=== PATIENT | female | born 1965 | race Two or more races ===

== ENCOUNTER 2019-01-04 12:38 | Emergency (ER) | payer MEDICAID ==
[~2019-01-04] VITALS: Ht 165.1 cm; Wt 104.3 kg
[~2019-01-04 12:38] MED LIST: LISINOPRIL; [UNRECOGNIZED DRUG - OTHER]; asa; lopressor; lotensin; xanax
[2019-01-04 12:53] VITALS: BP 119/80
[2019-01-04] MEDS ORDERED: HYDROcodone-ACET 7.5/325MG TAB PO ONE (15:30)
== END 2019-01-04 16:38 | disposition home or self-care (01) ==
LOC: EDBD 12:38 → ER 12:38
DX: G44.209 Tension-type headache, unspecified, not intractable (principal); K11.6 Mucocele of salivary gland; K04.7 Periapical abscess without sinus; M19.90 Unspecified osteoarthritis, unspecified site; E78.5 Hyperlipidemia, unspecified; E07.9 Disorder of thyroid, unspecified
CPT/HCPCS: 70450

== ENCOUNTER 2019-11-14 23:21 | Emergency (ER) | payer MEDICAID ==
[~2019-11-14] VITALS: Ht 172.7 cm; Wt 119.3 kg
[2019-11-15 01:17] LABS: Urine Bacteria FEW /hpf (None Seen); Urine Blood Negative /uL (Negative); Urine WBC 1 /hpf (0 - 5)
[2019-11-15 01:58] LABS: Basophils # (auto) 0 10 ^3/uL (0-0.2); Basophils % (auto) 0.6 % (0.0-2.0); Eosinophils # (auto) 0.1 10 ^3/uL (0-0.8); Eosinophils % (auto) 1.1 % (0.0-7.0); Hematocrit 40.4 % (36.0-46.0); Hemoglobin 13.8 g/dL (12.2-16.2); Lymphocytes # (auto) 1.6 10 ^3/uL (0.4-5.4); Lymphocytes % (auto) 31.2 % (10.0-50.0); Mean Corpuscular Hemoglobin 29.3 pg (28.0-32.0); Mean Corpuscular Hgb Conc. 34.1 g/dL (32.0-36.0); Mean Corpuscular Volume 85.8 fL (80.0-100.0); Monocytes # (auto) 0.5 10 ^3/uL (0-1.3); Monocytes % (auto) 9.7 % (0.0-12.0); Neutrophils % (auto) 57.4 % (37.0-80.0); Platelet Count (auto) 262 10^3/uL (140-450); Red Blood Cells 4.71 10^6/uL (4.0-5.20); Red Cell Distribution Width 15.8 % (11.8-14.3); White Blood Cell 5.2 10^3/uL (4.4-10.8)
[2019-11-15 02:14] LABS: Albumin 3.5 g/dL (3.4-5.0); Anion Gap 6 (5-15); Blood Urea Nitrogen 13 mg/dL (7-18); Calcium 9.3 mg/dL (8.5-10.1); Carbon Dioxide 29 mmol/L (21-32); Chloride 105 mmol/L (98-107); Glucose 90 mg/dL (74-106); Sodium 140 mmol/L (136-145)
[2019-11-15 02:16] LABS: Alanine Aminotransferase 42 U/L (13-56); Aspartate Aminotransferase 28 U/L (15-37); BUN/Creatinine Ratio 19.7; GFR African American 121 mL/min; GFR Non-African American 100 mL/min
[2019-11-15 02:21] LABS: Alkaline Phosphatase 128 U/L (45-117); Bilirubin, Total 0.6 mg/dL (0.2-1.0); Total Protein 7.2 g/dL (6.4-8.2)
[2019-11-15 02:25] LABS: Potassium 2.6 mmol/L (3.5-5.1)
[2019-11-15] MEDS ORDERED: PREGABALIN 25 MG CAP PO ONE (03:15)
[2019-11-15] MEDS ORDERED: POTASSIUM EFFERVESENT TAB 25 MEQ PO ONE (03:15)
[2019-11-15] MEDS ORDERED: OXYCODONE W/ ACETAMINOPHEN 5/325MG TABLET PO ONE (03:15)
[2019-11-15] MEDS ORDERED: POTASSIUM CHL 20MEQ/100ML 100 ML IV ONE (03:15)
[2019-11-15] MEDS ORDERED: APIXABAN 2.5 MG TAB PO ONE (03:45)
[2019-11-15] MEDS ORDERED: APIXABAN 5 MG TAB PO ONE (04:00)
[2019-11-15 07:43] VITALS: BP 133/73
== END 2019-11-15 07:46 | disposition home or self-care (01) ==
LOC: ER 23:21 → EDBD 23:21 → ER 11-15 07:46
DX: F41.9 Anxiety disorder, unspecified (principal); G89.29 Other chronic pain; E87.6 Hypokalemia; E78.5 Hyperlipidemia, unspecified; I10 Essential (primary) hypertension; Z90.49 Acquired absence of other specified parts of digestive tract
CPT/HCPCS: 36415; 71045; 80053; 81001; 84484; 85025; 93005; 96365; 96366; 99285; J3480; J7030

== ENCOUNTER 2023-09-02 04:58 | Emergency (ER) | payer MEDICAID ==
[~2023-09-02] VITALS: Ht 160 cm; Wt 145.0 kg
[~2023-09-02 04:58] MED LIST changes: +APIX5TAB PO; +GABA-1250 PO; +PERCOT PO; +PREG100C PO
[2023-09-02 07:17] VITALS: BP 144/89; PULSE 63; RESP 18; TEMP 98.3; O2SAT 99
[2023-09-02 07:31] LABS: Basophils # (auto) 0 10 ^3/uL (0-0.2); Basophils % (auto) 0.4 % (0.0-2.0); Eosinophils # (auto) 0.1 10 ^3/uL (0-0.8); Eosinophils % (auto) 0.7 % (0.0-7.0); Hematocrit 45.4 % (36.0-46.0); Hemoglobin 15.5 g/dL (12.2-16.2); Lymphocytes # (auto) 1.9 10 ^3/uL (0.4-5.4); Lymphocytes % (auto) 19.9 % (10.0-50.0); Mean Corpuscular Hemoglobin 28.6 pg (28.0-32.0); Mean Corpuscular Hgb Conc. 34.2 g/dL (32.0-36.0); Mean Corpuscular Volume 83.6 fL (80.0-100.0); Monocytes # (auto) 0.8 10 ^3/uL (0-1.3); Monocytes % (auto) 8.3 % (0.0-12.0); Neutrophils # (auto) 6.6 10 ^3/uL (1.6-8.6); Neutrophils % (auto) 70.7 % (37.0-80.0); Nucleated Red Blood Cells % 0.1 %; Red Blood Cells 5.43 10^6/uL (4.0-5.20); Red Cell Distribution Width 16.3 % (11.8-14.3); White Blood Cell 9.3 10^3/uL (4.4-10.8)
[2023-09-02 07:40] LABS: Chloride 92 mmol/L (98-107); Potassium 2.8 mmol/L (3.5-5.1); Sodium 129 mmol/L (136-145)
[2023-09-02 07:41] LABS: Anion Gap 9 (5-15); Carbon Dioxide 28 mmol/L (20-30)
[2023-09-02 07:46] LABS: Glucose 128 mg/dL (74-106)
[2023-09-02 07:47] LABS: BUN/Creatinine Ratio 13.3 (10.0-20.0); Blood Urea Nitrogen 10 mg/dL (9-23); Lipase 23 U/L (12-53)
[2023-09-02 08:15] LABS: Urine Bacteria None Seen /hpf (None Seen)
[2023-09-02 08:39] LABS: Urine Blood Negative /uL (Negative); Urine Clarity Clear (Clear); Urine Color Light-Yellow (Yellow); Urine Hyaline Cast FEW /lpf (0 - 2); Urine Protein, UAD Negative (Negative); Urine Specific Gravity 1.014 (1.001-1.035); Urine Urobilinogen Normal (Negative); Urine WBC 1 /hpf (0 - 5); Urine pH 5.5 (5.0-9.0)
[2023-09-02] MEDS ORDERED: POTA-36 PO (09:05)
== END 2023-09-02 09:09 | disposition home or self-care (01) ==
LOC: EDBD 04:58 → ER 04:58
DX: E87.6 Hypokalemia (principal); I10 Essential (primary) hypertension; E11.9 Type 2 diabetes mellitus without complications; E78.5 Hyperlipidemia, unspecified; Z90.49 Acquired absence of other specified parts of digestive tract; Z88.6 Allergy status to analgesic agent; Z88.8 Allergy status to other drugs, medicaments and biological substances
CPT/HCPCS: 36415; 80048; 81001; 83690; 85025

== ENCOUNTER 2023-09-09 18:38 | Inpatient (IN) | payer MEDICAID ==
[~2023-09-09] VITALS: Ht 165.1 cm; Wt 148.1 kg
[~2023-09-09 18:38] MED LIST changes: +POTA-36 PO
[2023-09-09 19:00] LABS: Basophils # (auto) 0.1 10 ^3/uL (0-0.2); Basophils % (auto) 0.6 % (0.0-2.0); Eosinophils # (auto) 0.1 10 ^3/uL (0-0.8); Hematocrit 43.8 % (36.0-46.0); Hemoglobin 14.9 g/dL (12.2-16.2); Lymphocytes # (auto) 2.9 10 ^3/uL (0.4-5.4); Lymphocytes % (auto) 23.3 % (10.0-50.0); Mean Corpuscular Hemoglobin 28.1 pg (28.0-32.0); Mean Corpuscular Hgb Conc. 33.9 g/dL (32.0-36.0); Mean Corpuscular Volume 82.7 fL (80.0-100.0); Monocytes # (auto) 1.5 10 ^3/uL (0-1.3); Monocytes % (auto) 12.4 % (0.0-12.0); Neutrophils # (auto) 7.8 10 ^3/uL (1.6-8.6); Neutrophils % (auto) 62.7 % (37.0-80.0); Nucleated Red Blood Cells % 0.1 %; Red Cell Distribution Width 15.6 % (11.8-14.3); White Blood Cell 12.4 10^3/uL (4.4-10.8)
[2023-09-09 19:15] LABS: Alanine Aminotransferase 21 U/L (7-40); Albumin 4.2 g/dL (3.2-4.8); Alkaline Phosphatase 151 U/L (46-116); Anion Gap 5 (5-15); Aspartate Aminotransferase 13 U/L (13-40); Blood Urea Nitrogen 15 mg/dL (9-23); Calcium 9.6 mg/dL (8.7-10.4); Carbon Dioxide 32 mmol/L (20-30); Chloride 78 mmol/L (98-107); Glucose 100 mg/dL (74-106); Lipase 148 U/L (12-53)
[2023-09-09 19:16] LABS: Bilirubin, Total 1.1 mg/dL (0.2-1.0); Total Protein 7.1 g/dL (5.7-8.2)
[2023-09-09 19:27] LABS: Sodium 115 mmol/L (136-145)
[2023-09-09] MEDS ORDERED: DEXTROSE (50%) 50ML SYRG IV PRN (22:30)
[2023-09-09] MEDS ORDERED: ACETAMINOPHEN 325 MG TAB PO PRN (22:30)
[2023-09-09] MEDS ORDERED: DOCUSATE SOD 100 MG CAP PO PRN (22:30)
[2023-09-09 23:01] VITALS: PULSE 89; RESP 20; O2SAT 97
[2023-09-09] MEDS: HYDROcodone-ACET 10/325MG TAB PO ONE (23:19)
[2023-09-09] MEDS: cefTRIAXone 1GM/50ML D5W 50 ML IV ONE (23:19)
[2023-09-09] MEDS: POTASSIUM EFFERVESENT TAB 25 MEQ PO ONE (23:20)
[2023-09-09] MEDS: ONDANSETRON HCL 4 MG/2 ML VIAL IV PRN (23:20)
[2023-09-09] MEDS: SODIUM CHLORIDE 0.9% 1,000 ML IV ONE (23:21)
[2023-09-09] MEDS: POTASSIUM CHL 20MEQ/100ML 100 ML IV SCH (23:23)
[2023-09-09] MEDS: SODIUM CHLORIDE 0.9% 1,000 ML IV SCH (23:42)
[2023-09-10] VITALS (9 sets, daily range): BP systolic 96–118; BP diastolic 60–76; PULSE 62–99; RESP 16–19; TEMP 97.6–98.4; O2SAT 93–100
[2023-09-10] MEDS ORDERED: NITROGLYCERIN 0.4 MG SL TAB SL PRN
[2023-09-10] MEDS ORDERED: MORPHINE SULFATE INJ 2 MG/ml SYRG IV PRN
[2023-09-10 01:14] LABS: Urine Bacteria None Seen /hpf (None Seen)
[2023-09-10] MEDS: HYDROmorphone HCL 2 MG/ML VL/or syr IV PRN ×3 (01:29→20:11)
[2023-09-10 01:34] LABS: Urine Blood Negative /uL (Negative); Urine Clarity Clear (Clear); Urine Color Yellow (Yellow); Urine Protein, UAD Negative (Negative); Urine Specific Gravity 1.012 (1.001-1.035); Urine Urobilinogen Normal (Negative); Urine WBC 9 /hpf (0 - 5); Urine pH 5.5 (5.0-9.0)
[2023-09-10] MEDS: InsuLIN REG 1unit/0.01ml Soln (100units/ml) SC SCH (06:13)
[2023-09-10] MEDS: ACCU-CHEK COMFORT CURVE STRIP VI SCH (06:13)
[2023-09-10 06:40] LABS: Basophils # (auto) 0 10 ^3/uL (0-0.2); Basophils % (auto) 0.3 % (0.0-2.0); Eosinophils # (auto) 0.1 10 ^3/uL (0-0.8); Eosinophils % (auto) 1.1 % (0.0-7.0); Hematocrit 38.6 % (36.0-46.0); Hemoglobin 13.6 g/dL (12.2-16.2); Lymphocytes # (auto) 2.7 10 ^3/uL (0.4-5.4); Lymphocytes % (auto) 26.8 % (10.0-50.0); Mean Corpuscular Hemoglobin 29.2 pg (28.0-32.0); Mean Corpuscular Hgb Conc. 35.3 g/dL (32.0-36.0); Mean Corpuscular Volume 82.8 fL (80.0-100.0); Monocytes # (auto) 1.2 10 ^3/uL (0-1.3); Monocytes % (auto) 11.8 % (0.0-12.0); Neutrophils # (auto) 6.1 10 ^3/uL (1.6-8.6); Red Blood Cells 4.67 10^6/uL (4.0-5.20); White Blood Cell 10.2 10^3/uL (4.4-10.8)
[2023-09-10 07:01] LABS: Alanine Aminotransferase 19 U/L (7-40); Alkaline Phosphatase 139 U/L (46-116); Anion Gap 5 (5-15); BUN/Creatinine Ratio 19.8 (10.0-20.0); Blood Urea Nitrogen 18 mg/dL (9-23); Calcium 8.9 mg/dL (8.5-10.1); Carbon Dioxide 30 mmol/L (20-30); Chloride 80 mmol/L (98-107); Glucose 125 mg/dL (74-106); Potassium 2.9 mmol/L (3.5-5.1)
[2023-09-10 07:02] LABS: Albumin 3.7 g/dL (3.2-4.8); Aspartate Aminotransferase 10 U/L (13-40); Bilirubin, Total 0.9 mg/dL (0.2-1.0)
[2023-09-10 07:03] LABS: Total Protein 6.2 g/dL (5.7-8.2)
[2023-09-10 07:21] LABS: Sodium 115 mmol/L (136-145)
[2023-09-10] MEDS: APIXABAN 5 MG TAB PO SCH ×2 (09:47→22:20)
[2023-09-10] MEDS: FAMOTIDINE (10MG/ML) 2ML VL IV SCH (09:47)
[2023-09-10] MEDS: POTASSIUM CHL 20 Meq TABLET PO ONE ×2 (11:06→17:48)
[2023-09-10 11:49] LABS: INR 0.99 (0.9-1.15); Partial Thromboplastin Time 31.6 SEC (24.5-34.5); Prothrombin Time 10.5 sec (9.3-11.8)
[2023-09-10 11:54] LABS: Triglycerides 52 mg/dL (< 150)
[2023-09-10 11:55] LABS: Blood Alcohol < 3.0 mg/dL (<10); Magnesium 2.2 mg/dL (1.6-2.6)
[2023-09-10 12:00] LABS: Thyroid Stimulating Hormone 1.12 uIU/mL (0.55-4.78)
[2023-09-10 12:15] LABS: Sodium Urine < 10 mmol/L (40-220)
[2023-09-10 12:21] LABS: Amphetamine Screen, Urine Neg (NEGATIVE)
[2023-09-10 12:22] LABS: Creatinine, Urine 37.43 mg/dL (30.0-125.0)
[2023-09-10 12:23] LABS: Barbiturate Scree,Urine Neg (NEGATIVE); Benzodiazephine Screen, Urine Pos (NEGATIVE); Cannabinoid Screen, Urine Neg (NEGATIVE); Cocaine Screen, Urine Neg (NEGATIVE); Opiate Scree,Urine Neg (NEGATIVE); Phencyclidine Screen, Urine Neg (NEGATIVE)
[2023-09-10 13:57] LABS: Chloride 83 mmol/L (98-107); Potassium 2.8 mmol/L (3.5-5.1)
[2023-09-10 13:58] LABS: Anion Gap 4 (5-15); Carbon Dioxide 29 mmol/L (20-30)
[2023-09-10 14:04] LABS: BUN/Creatinine Ratio 17.1 (10.0-20.0); Blood Urea Nitrogen 13 mg/dL (9-23); Glucose 110 mg/dL (74-106)
[2023-09-10 14:12] LABS: Sodium 116 mmol/L (136-145)
[2023-09-10] MEDS: SPIRONOLACTONE 25 MG TAB PO ONE (14:23)
[2023-09-10] MEDS: LEVOTHYROXINE SODIUM 25 MCG TAB PO ONE (14:23)
[2023-09-10] MEDS: HYDROcodone-ACET 5/325MG TAB PO PRN (15:03)
[2023-09-10 15:38] LABS: Chloride 83 mmol/L (98-107); Potassium 3.3 mmol/L (3.5-5.1)
[2023-09-10 15:42] LABS: Anion Gap 4 (5-15); Calcium 9.3 mg/dL (8.5-10.1); Carbon Dioxide 30 mmol/L (20-30)
[2023-09-10 15:47] LABS: BUN/Creatinine Ratio 14.5 (10.0-20.0); Blood Urea Nitrogen 11 mg/dL (9-23)
[2023-09-10 15:52] LABS: Sodium 117 mmol/L (136-145)
[2023-09-10 16:20] LABS: Base Excess 5.6 mmol/L (-2.0-2.0)
[2023-09-10 16:21] LABS: Glucose 104 mg/dL (74-106)
[2023-09-10] MEDS: SODIUM CHLORIDE 0.9% 1,000 ML IV SCH (16:41)
[2023-09-10 19:29] LABS: Anion Gap 3 (5-15); Calcium 9.5 mg/dL (8.7-10.4); Carbon Dioxide 29 mmol/L (20-30); Chloride 86 mmol/L (98-107); Potassium 3.4 mmol/L (3.5-5.1)
[2023-09-10 19:33] LABS: Glucose 144 mg/dL (74-106)
[2023-09-10 19:35] LABS: BUN/Creatinine Ratio 11.7 (10.0-20.0); Blood Urea Nitrogen 9 mg/dL (9-23)
[2023-09-10 19:38] LABS: Sodium 118 mmol/L (136-145)
[2023-09-10] MEDS ORDERED: cefTRIAXone 1GM/50ML D5W 50 ML IV SCH (22:00)
[2023-09-10] MEDS: PANTOPRAZOLE 40 MG/10 ML VIAL INJ IV SCH (22:20)
[2023-09-11] VITALS (7 sets, daily range): BP systolic 112–131; BP diastolic 57–72; PULSE 76–97; RESP 17–18; TEMP 97.4–98.7; O2SAT 98–100
[2023-09-11 06:04] LABS: Basophils # (auto) 0 10 ^3/uL (0-0.2); Basophils % (auto) 0.5 % (0.0-2.0); Eosinophils # (auto) 0.2 10 ^3/uL (0-0.8); Eosinophils % (auto) 2.1 % (0.0-7.0); Hematocrit 40.5 % (36.0-46.0); Hemoglobin 13.8 g/dL (12.2-16.2); Lymphocytes # (auto) 2.5 10 ^3/uL (0.4-5.4); Lymphocytes % (auto) 30.8 % (10.0-50.0); Mean Corpuscular Hemoglobin 28.5 pg (28.0-32.0); Mean Corpuscular Volume 83.8 fL (80.0-100.0); Monocytes # (auto) 1.2 10 ^3/uL (0-1.3); Monocytes % (auto) 14.6 % (0.0-12.0); Neutrophils # (auto) 4.2 10 ^3/uL (1.6-8.6); Red Blood Cells 4.83 10^6/uL (4.0-5.20); Red Cell Distribution Width 16.1 % (11.8-14.3)
[2023-09-11 06:09] LABS: Anion Gap 3 (5-15); Calcium 9.3 mg/dL (8.5-10.1); Carbon Dioxide 30 mmol/L (20-30); Chloride 91 mmol/L (98-107); Potassium 4.3 mmol/L (3.5-5.1)
[2023-09-11 06:15] LABS: BUN/Creatinine Ratio 13.3 (10.0-20.0); Blood Urea Nitrogen 8 mg/dL (9-23); Glucose 103 mg/dL (74-106); Triglycerides 60 mg/dL (< 150)
[2023-09-11 06:16] LABS: LDL Cholesterol 49 mg/dL (< 100); Magnesium 2.4 mg/dL (1.6-2.6)
[2023-09-11 06:17] LABS: Cholesterol 142 mg/dL (< 200); HDL Cholesterol 74 mg/dL (40-59)
[2023-09-11] MEDS: LEVOTHYROXINE SODIUM 25 MCG TAB PO SCH (06:28)
[2023-09-11 06:29] LABS: Sodium 124 mmol/L (136-145)
[2023-09-11] MEDS: cefTRIAXone 1GM/50ML D5W 50 ML IV SCH (09:39)
[2023-09-11] MEDS: SPIRONOLACTONE 25 MG TAB PO SCH (09:39)
[2023-09-12 01:00] VITALS: BP_SYST 138; BP_SYST 148; BP_DIAS 69; BP_DIAS 88; PULSE 86; RESP 16; TEMP 97.9; O2SAT 100
[2023-09-12 05:00] VITALS: BP 136/77; PULSE 82; RESP 17; TEMP 97.9; O2SAT 99
[2023-09-12 07:10] LABS: Anion Gap 1 (5-15); Calcium 9.2 mg/dL (8.5-10.1); Carbon Dioxide 29 mmol/L (20-30); Chloride 97 mmol/L (98-107); Potassium 4.6 mmol/L (3.5-5.1); Sodium 127 mmol/L (136-145)
[2023-09-12 07:16] LABS: BUN/Creatinine Ratio 9.1 (10.0-20.0); Blood Urea Nitrogen 5 mg/dL (9-23); Glucose 94 mg/dL (74-106)
[2023-09-12 08:00] VITALS: PULSE 77
[2023-09-12 09:35] VITALS: BP 143/82; PULSE 73; RESP 20; TEMP 98.1; O2SAT 98
[2023-09-12 13:24] VITALS: BP 134/67; PULSE 87; RESP 20; TEMP 98.3; O2SAT 97
== END 2023-09-12 16:04 | disposition left against medical advice (07) | DRG 282 ==
LOC: EDBD 18:38 → ER 18:38 → TELE 23:49 → TELE-WESTW 09-10 03:00
PROVIDERS: ADMIT Internal Medicine; ATTEND Internal Medicine
DX: K85.90 Acute pancreatitis without necrosis or infection, unspecified (principal); I24.9 Acute ischemic heart disease, unspecified; Z68.43 Body mass index [BMI] 50.0-59.9, adult; K74.60 Unspecified cirrhosis of liver; E87.1 Hypo-osmolality and hyponatremia; E11.9 Type 2 diabetes mellitus without complications; D72.829 Elevated white blood cell count, unspecified; E03.9 Hypothyroidism, unspecified; E78.5 Hyperlipidemia, unspecified; Z53.29 Procedure and treatment not carried out because of patient's decision for other reasons; R33.9 Retention of urine, unspecified; E87.6 Hypokalemia; F10.20 Alcohol dependence, uncomplicated; E66.01 Morbid (severe) obesity due to excess calories; I10 Essential (primary) hypertension; Z86.711 Personal history of pulmonary embolism; Z90.49 Acquired absence of other specified parts of digestive tract; Z98.84 Bariatric surgery status; Z82.49 Family history of ischemic heart disease and other diseases of the circulatory system; Z82.3 Family history of stroke; Z83.3 Family history of diabetes mellitus; Z79.4 Long term (current) use of insulin; Z79.899 Other long term (current) drug therapy; Y90.9 Presence of alcohol in blood, level not specified
CPT/HCPCS: 36415; 36600; 74176; 80048; 80053; 80061; 80307; 80320; 81001; 82570; 82805; 82962; 83036; 83605; 83615; 83690; 83735; 83880; 83930; 83935; 84133; 84300; 84443; 84478; 84484; 84550; 85025; 85610; 85730; 86038; 87040; 87086; 93005; 96361; 96365; 96375; 97162; C9113; G0378; J2405; J3480; J3490

== ENCOUNTER 2024-08-29 12:01 | Inpatient (IN) | payer MEDICAID ==
[~2024-08-29] VITALS: Ht 160 cm; Wt 156.0 kg
[~2024-08-29 12:01] MED LIST changes: +ALPR0.5T PO; +ARIP1TAB63 PO; +FURO20TA4 PO; +HYDR25TA4 PO; +LEVO50TA7 PO; +LISI20TA56 PO; +LORA-622 PO; +METO-289 PO; +POTA-228 PO; +SIMV10TA20 PO; +[UNRECOGNIZED DRUG - CODE] PO
--- NOTE | 2024-08-29 12:23 | ED.PDOC ---
SOB-HPI HPI Comments This is a 58 year old female TORIA presenting to the ED with chief complaint of SOB. Patient reports that she has been experiencing SOB since yesterday and is normally on 4L of O2 at home. EMS relays that the patient did not take her Lasix today and upon arrival to the ED, the patient started to complaint of left sided dull chest pain with associated nausea and chills. Patient notes having history of a PE in and has been on Eliquis since then. Patient denies any cough, headache, dizziness, vomiting, diarrhea, abdominal pain, or hemoptysis. Time Seen by MD: 12:20 Primary Care Provider: SON Reviewed notes: Nurses Notes, Manager Retail Notes, Medications, Allergies Information Source: Patient, Emergency Med Personnel Mode of Arrival: EMS Severity: Moderate Timing: Hours Duration: Since onset Context: At Rest PE Risk Factors: None History of: None Prehospital treatment: Oxygen Modifying Factors: Nothing Associated Signs and Symptoms: Chest Pain Quality: Other (Dull) Radiation: No Radiation Location: Chest (L) Past Medical History PAST MEDICAL HISTORY: Anxiety, Arthritis, COPD, DM, High Lipids, HTN, Liver, PE, Thyroid Surgical History: Appendectomy, Cholecystectomy Surgical History (Other): Bariatric surgery POWER CHECKER History: Denies all POWER CHECKER Hx Family History Family History: Reviewed,noncontributory to illness, Family hx of heart ignacio Social History Smoker: Non-Smoker Alcohol: Occasionally Drugs: Denies Drug Use Lives In: Home Constitutional: reports: chills; denies: diaphoresis, fatigue, fever, malaise, sweats, weakness, others EENTM: denies: blurred vision, double vision, ear bleeding, ear discharge, ear drainage, ear pain, ear ringing, eye pain, eye redness, hearing loss, mouth pain, mouth swelling, nasal discharge, nose bleeding, nose congestion, nose pain, photophobia, tearing, throat pain, throat swelling, voice changes, others Respiratory: reports: shortness of breath; denies: cough, hemoptysis, ortho pnea, SOB at rest, SOB with excertion, stridor, wheezing, others Cardiovascular: reports: chest pain; denies: dizzy spells, diaphoresis, Dyspnea on exertion, edema, irregular heart beat, left arm pain, lightheadedness, palpitations, PND, syncope, others Gastrointestinal: reports: nausea; denies: abdomen distended, abdominal pain, blood streaked bowels, constipated, diarrhea, dysphagia, difficulty swallowing, hematemesis, melena, poor appetite, poor fluid intake, rectal bleeding, rectal pain, vomiting, others Genitourinary: denies: abnormal vagina bleeding, burning, dyspareunia, dysuria, flank pain, frequency, hematuria, incontinence, pain, , vagina discharge, urgency, others Neurological: denies: dizziness, fainting, headache, left sided numbness, left sided weakness, numbness, paresthesia, pre-existing deficit, right sided numbness, right sided weakness, seizure, speech problems, tingling, tremors, weakness, others Musculoskeletal: denies: back pain, gout, joint pain, joint swelling, muscle pain, muscle stiffness, neck pain, others Integumetry: denies: bruises, change in color, change in hair/nails, dryness, laceration, lesions, lumps, rash, wounds, others Allergic/Immunocompromised: denies: Difficulty Healing, Frequent Infections, Hives, Itching, others Hematologic/Lymphatic: denies: anemia, blood clots, easy bleeding, easy bruising, swollen glands, others Endocrine: denies: excessive hunger, excessive sweating, excessive thirst, excessive urination, flushing, intolerance to cold, intolerance to heat, unexplained weight gain, unexplained weight loss, others Psychiatric: denies: anxiety, bipolar disorder, depression, hopeless, panic disorder, schizophrenia, sleepless, suicidal, others All Other Systems: Reviewed and Negative Physical Exam General Appearance: Moderate Distress, Obese HEENT: Normal ENT Inspection, Pharynx Normal, TMs Normal Neck: Full Range of Motion, Non-Tender, Normal, Normal Inspection Respiratory: Chest Non-Tender, Lungs Clear, No Accessory Muscle Use, No Respiratory Distress, Normal Breath Sounds Cardiovascular: No Edema, No JVD, No Murmur, No Gallop, Normal Peripheral Pulses, Regular Rate/Rhythm Breast Exam: Deferred Gastrointestinal: LLQ, No Organomegaly, Normal Bowel Sounds, Soft, Tenderness Genitalia: Deferred Pelvic: Deferred Rectal: Deferred Extremities: No calf tenderness, Normal capillary refill, Pedal edema Musculoskeletal : Apperance: Normal Neurologic: Alert, web application developer II-XII nml as Tested, Motor Weakness, Normal Affect, Normal Mood, No Sensory Deficits Cerebellar Function: Normal Reflexes: Normal Skin: Dry, Normal Color, Warm Lymphatic: No Adenopathy EKG EKG : Pulse Rate (adult): 108 Vida: Normal Cardiac Rhythm: ST Block: None Hypertrophy: LVH ST: Old, Inf, Infarct Was a procedure done? Was a procedure done?: No Differential Dx Differential Diagnosis: Asthma, Bronchitis, CHF, COPD, Pneumonia X-Ray, Labs, Meds, VS Vital Signs Date Time Temp Pulse Resp B/P (MAP) Pulse Ox O2 Delivery O2 Flow Rate FiO2 08/29/24 17:16 97.5 110 16 113/78 (90) 99 97.5 08/29/24 14:54 98.0 103 18 117/71 (86) 99 98.0 08/29/24 13:45 99 15 104/81 08/29/24 13:40 98.1 99 14 104/81 (89) 100 98.1 08/29/24 13:40 99 14 100 Room Air* 0 21 08/29/24 12:29 97.7 97 22 149/81 (103) 100 97.7 08/29/24 12:28 22 100 Nasal Cannula* 4 36 08/29/24 12:23 108 08/29/24 12:07 108 Lab Test 08/29/24 14:24 08/29/24 13:14 Range/Units Troponin I High Sensitivity 6 6 </=34 ng/L White Blood Count 8.8 4.4-10.8 10^3/uL Red Blood Count 5.58 H 4.0-5.20 10^6/uL Hemoglobin 16.2 12.2-16.2 g/dL Hematocrit 47.1 H 36.0-46.0 % Mean Corpuscular Volume 84.4 80.0-100.0 fL Mean Corpuscular Hemoglobin 29.0 28.0-32.0 pg Mean Corpuscular Hemoglobin Concent 34.4 32.0-36.0 g/dL Red Cell Distribution Width 16.0 H 11.8-14.3 % Platelet Count 331 140-450 10^3/uL Mean Platelet Volume 8.1 6.9-10.8 fL Neutrophils (%) (Auto) 61.8 37.0-80.0 % Lymphocytes (%) (Auto) 28.0 10.0-50.0 % Monocytes (%) (Auto) 9.6 0.0-12.0 % Eosinophils (%) (Auto) 0.2 0.0-7.0 % Basophils (%) (Auto) 0.4 0.0-2.0 % Neutrophils # (Auto) 5.5 1.6-8.6 10 ^3/uL Lymphocytes # (Auto) 2.5 0.4-5.4 10 ^3/uL Monocytes # (Auto) 0.8 0-1.3 10 ^3/uL Eosinophils # (Auto) 0 0-0.8 10 ^3/uL Basophils # (Auto) 0 0-0.2 10 ^3/uL Nucleated Red Blood Cells 0.1 % D-Dimer, Quantitative 0.44 0.0-0.49 mg/L FEU Sodium Level 135 L 136-145 mmol/L Potassium Level 3.5 3.5-5.1 mmol/L Chloride Level 96 L 98-107 mmol/L Carbon Dioxide Level 23 20-31 mmol/L Anion Gap 16 H 5-15 Blood Urea Nitrogen 12 9-23 mg/dL Creatinine 0.93 0.550-1.02 mg/dL Glomerular Filtration Rate Calc 72 >90 mL/min BUN/Creatinine Ratio 12.9 10.0-20.0 Serum Glucose 130 H 74-106 mg/dL Calcium Level 10.0 8.7-10.4 mg/dL Current Medications Medications (Trade) Dose Ordered Sig/Latha Route Start Time Stop Time Status Last Admin Hydromorphone HCl (Dilaudid Injection) 1 mg ONCE ONCE IV 08/29/24 13:30 08/29/24 13:33 DC 08/29/24 13:45 Ondansetron HCl (Zofran) 4 mg ONCE ONCE IV 08/29/24 13:30 08/29/24 13:33 DC 08/29/24 13:43 Chest XR indicates: No acute disease. The patient was given Dilaudid 1 mg IV push for the pain The patient was given Zofran 4 mg IV push for the nausea The patient's CBC is within normal limits The chemistry panel is within normal limits The troponin level x2 is negative At this time, the patient is being admitted to the hospitalist The CAT scan of the abdomen and pelvis shows: IMPRESSION: 1. Prior Andree-en-Y gastric bypass surgery. No bowel obstruction, fluid collection, or free air. 2. Mild hepatomegaly. The chest x-ray shows: No sign of abnormalities The patient is being admitted at this time Images Reviewed?: Images reviewed and evaluated by me Time of 1ST Reevaluation: 19:08 Reevaluation 1ST: Unchanged Patient Education/Counseling: Diagnosis, Treatment, Prognosis Family Education/Counseling: No Family Present Additional Information Reviewed patient's previous visit(s): 10/29/23 for SOB The following tests were ordered, and results were reviewed by me: Chest XR, EKG, CBC, BMP, UA, D-Dimer, Troponin Additional information was gathered from interviewing the following independent historian: EMS I reviewed and agreed with the following test results read by other provider: Chest XR I discussed treatments and results with medical personnel and: Patient Comprehensive systems review obtained and negative except for what is stated in the HPI. Departure 1 Departure Time of Disposition: 19:09 Impression: Primary Impression: Generalized weakness Additional Impressions: Acute myocardial ischemia Intractable abdominal pain Disposition: ADMITTED INPATIENT Admit to: Tele Condition: Fair Critical Care Note Critical Care Time?: Yes (55 min-critical care time only) Stability Stability form required: Yes Unstable for transfer: Telemetry monitoring (Telemetry monitoring required), ED Physician Assesment (Clinical assesment) Heart Score Heart Score: Heart Score Response (Comments) Value History Highly Suspicious 2 EKG Repolarization Disturb 1 Age 45-64 1 Risk Factors >3 or Hx ASHD 2 Troponin Normal limit 0 Total 6 I personally scribed for FAVIO RASMUSSEN MD ([email or web address]) on 08/29/24 at 12:23. Electronically submitted by Liban Hubbard ([email or web address]). I personally scribed for FAVIO RASMUSSEN MD ([email or web address]) on 08/29/24 at 12:42. Electronically submitted by Liban Hubbard ([email or web address]). I personally scribed for FAVIO RASMUSSEN MD ([email or web address]) on 08/29/24 at 13:41. Electronically submitted by Liban Hubbard ([email or web address]). FAVIO RASMUSSEN MD Aug 29, 2024 12:23
--- NOTE | 2024-08-29 12:54 | DVH ---
CHEST RADIOGRAPH Indication: sob Technique: Single frontal view of the chest was obtained COMPARISON: XY CHEST PORTABLE on DOS: 10/29/23, CHEST XRAY 1 VIEW on DOS: 08/17/20, CHEST PORTABLE on DO S: 11/15/19 FINDINGS: Lines and Tubes: None Lungs: Clear Pleura: No effusion. No pneumothorax. Cardiomediastinal contours: Unremarkable Bones: Unremarkable IMPRESSION: No acute disease.
[2024-08-29 13:40] VITALS: PULSE 99; RESP 14; O2SAT 100
[2024-08-29 13:43] LABS: Basophils # (auto) 0 10 ^3/uL (0-0.2); Basophils % (auto) 0.4 % (0.0-2.0); Eosinophils # (auto) 0 10 ^3/uL (0-0.8); Eosinophils % (auto) 0.2 % (0.0-7.0); Hematocrit 47.1 % (36.0-46.0); Hemoglobin 16.2 g/dL (12.2-16.2); Lymphocytes # (auto) 2.5 10 ^3/uL (0.4-5.4); Mean Corpuscular Hgb Conc. 34.4 g/dL (32.0-36.0); Mean Corpuscular Volume 84.4 fL (80.0-100.0); Monocytes # (auto) 0.8 10 ^3/uL (0-1.3); Monocytes % (auto) 9.6 % (0.0-12.0); Neutrophils # (auto) 5.5 10 ^3/uL (1.6-8.6); Neutrophils % (auto) 61.8 % (37.0-80.0); Nucleated Red Blood Cells % 0.1 %; Platelet Count (auto) 331 10^3/uL (140-450); Red Blood Cells 5.58 10^6/uL (4.0-5.20); White Blood Cell 8.8 10^3/uL (4.4-10.8)
[2024-08-29] MEDS: ONDANSETRON HCL 4 MG/2 ML VIAL IV ONE (13:43)
[2024-08-29] MEDS: ONDANSETRON HCL 4 MG/2 ML VIAL ONE (13:43)
[2024-08-29] MEDS: HYDROmorphone HCL 2 MG/ML VL/or syr IV ONE ×2 (13:45→17:30)
[2024-08-29 13:51] LABS: Potassium 3.5 mmol/L (3.5-5.1)
[2024-08-29 13:52] LABS: Anion Gap 16 (5-15); Carbon Dioxide 23 mmol/L (20-31)
[2024-08-29 13:57] LABS: BUN/Creatinine Ratio 12.9 (10.0-20.0); Blood Urea Nitrogen 12 mg/dL (9-23)
[2024-08-29 13:58] LABS: Chloride 96 mmol/L (98-107); Glucose 130 mg/dL (74-106); Sodium 135 mmol/L (136-145)
--- NOTE | 2024-08-29 14:40 | DVH ---
CLINICAL HISTORY: Abdominal pain TECHNIQUE: CT of the abdomen and pelvis was performed without intravenous contrast. This exam was per formed according to our departmental dose optimization program. Up-to-date CT equipment and radiation dose reduction techniques are utilized as appropriate. CTDI: 27.88 DLP: 1602.49 WID: COMPARISON: CT CT AB PEL WO CON-NO ORAL OR IV on DOS: 09/09/23 FINDINGS: Lower Thorax: Linear scarring or atelectasis in the lingula. Normal-sized heart. Liver and Biliary system: Mild hepatomegaly with the right lobe of the liver measuring 19 cm cranioca udal. No definite hepatic lesion. There is mild dilatation of the common bile duct status post cholec ystectomy. No intrahepatic bile duct dilatation. Spleen: Unremarkable. Adrenal Glands and Kidneys: Unremarkable. Pancreas and Retroperitoneum: Unremarkable. Aorta and Major Vessels: Aortoiliac vessels are normal in caliber with mild calcified atherosclerotic plaque. Bowel, Mesentery and Peritoneal space: The small and large bowel loops are normal in caliber. Prior R oux-en-Y gastric bypass surgery and left anterior abdominal anastomosis. Prior appendectomy. There is no free intraperitoneal air, mesenteric lymphadenopathy, or loculated fluid collection. Pelvis: Unremarkable. Abdominal wall and Osseous Structures: Multilevel lower thoracic and lumbar spondylosis. There is gr dina 1 anterolisthesis at L4-L5 and L5-S1. No destructive osseous lesion. IMPRESSION: 1. Prior Andree-en-Y gastric bypass surgery. No bowel obstruction, fluid collection, or free air. 2. Mild hepatomegaly.
[2024-08-29] MEDS ORDERED: ACETAMINOPHEN 325 MG TAB PO PRN (22:30)
[2024-08-29] MEDS: ACETAMINOPHEN 325 MG TAB PO ONE (22:45)
[2024-08-29] MEDS: POTASSIUM EFFERVESENT TAB 25 MEQ PO ONE (22:45)
[2024-08-29] MEDS: SODIUM CHLORIDE 0.9% 1,000 ML IV ONE (22:45)
[2024-08-29 23:23] LABS: Urine Bacteria None Seen /hpf (None Seen)
--- NOTE | 2024-08-29 23:23 | DVHHPRES ---
History of Present Illness Resident Creating Document: [place] [facility] RESIDENT History of Present Illness This is a 58-year-old female with past medical history of hypertension, neuropathy, degenerative disc disease, dyslipidemia, hypothyroidism, osteoarthritis, history of IVC filter placed in 2018 unable to be removed, pulmonary embolism in 2018 and has been on 4L of O2 at home through Nasal cannula, presented to the ED with chief complaint of acute shortness of breath and generalized body cramps. Patient states that shortness of breaths started yesterday and progressively got worse today without cough or sputum production. Patient also reported mild intermittent chest pain and states that has not been able to walk with her cane as normally due to the generalized muscle cramps. The patient denied fever/chills, or any other associated symptoms. On admission, patient was placed on 4 L of oxygen through nasal cannula, initial labs showed normal CBC and BNP with negative troponins. D-dimer was normal range, chest x-ray was grossly clear without evidence of clear consolidations. We will admit the patient for further assessment and management. Past medical history: hypertension, neuropathy, degenerative disc disease, dyslipidemia, hypothyroidism, osteoarthritis, history of IVC filter placed in 2018 unable to be removed, pulmonary embolism in 2018 and has been on 4L of O2 at home through Nasal cannula. The patient stated that in 2018 before doing bariatric surgery they placed an inferior vena cava filter prophylactically and after the surgery she developed pulmonary embolism. Later on they were not able to remove the IVC filter due to "perforation". Home medications: Lisinopril, hydrochlorothiazide, metoprolol, Lyrica, Percocet, Eliquis 5 mg b.i.d. (patient does not remember the dose of the medications). Surgical history: Bariatric surgery in 2018 Social history: Reports chronic alcohol use but stopped this time, quit smoking long time ago and denies drugs intake. Cardiovascular: HTN, hyperipidemia Pulmonary: Pulmonary embolus Musculoskeletal: Osteoarthritis Endocrine: Hypothyroidism Past Surgical History: Other (Inferior vena cava filter placement in 2018 not able to be removed. And bariatric surgery in 2018 as well.) Family History: None Smoke: Quit ALCOHOL: occassional Drugs: None Lives: with Family Domestic Violence: Neg Review of Systems Constitutional: No: Fever, Chills, Sweats, Weakness, Malaise, Other Eyes: No: Pain, Vision change, Conjunctivae inflammation, Eyelid inflammation, Other, Redness ENT: No: Ear pain, Ear discharge, Nose pain, Nose discharge, Nose congestion, Mouth pain, Mouth swelling, Throat pain, Throat swelling, Other Respiratory: Shortness of breath, SOB with excertion; No: Cough, Dry, Wheezing, Hemoptysis, Pleuritic Pain, Sputum, Wheezing, Other Cardiovascular: Chest Pain; No: Palpitations, Orthopnea, Paroxysmal Noc. Dyspnea, Edema, Lt Headedness, Other Gastrointestinal: No: Nausea, Vomiting, Abdominal Pain, Diarrhea, Constipation, Melena, Hematochezia, Other Genitourinary: No Dysuria, No Frequency, No Incontinence, No Hematuria, No Retention, No Other Musculoskeletal: other (Generalized body cramps in both upper extremities and lower extremities well as back and trunk.) Skin: No: Rash, Lesions, Jaundice, Bruising, Other Neurological: No: Weakness, Numbness, Incoordination, Change in speech, Confusion, Seizures, Other Allergies: Coded Allergies: Tramadol (Verified Allergy, Intermediate, unknown, 08/17/20) Ketorolac Tromethamine (Verified Allergy, Unknown, 11/15/19) Lidocaine (Verified Allergy, Unknown, 08/17/20) Morphine (Unverified Allergy, Unknown, 11/15/19) Verapamil (Unverified Allergy, Unknown, 11/15/19) Medications Current Medications Medications Dose Ordered Sig/Latha Route Start Time Stop Time Status Last Admin Dose Admin Acetaminophen 650 mg Q6HP PRN PO 08/29/24 22:30 Acetaminophen/ Hydrocodone Bitart 1 tab Q4HP PRN PO 08/29/24 22:30 Enoxaparin Sodium 40 mg DAILY SC 08/30/24 10:00 Exam Vital Signs Vital Signs Date Time Temp Pulse Resp B/P (MAP) Pulse Ox O2 Delivery O2 Flow Rate FiO2 08/29/24 19:37 97.8 115 18 119/89 (99) 96 97.8 08/29/24 13:40 Room Air* 0 21 General Appearance: Alert, Oriented X3, Cooperative, mild distress HEENT: Atraumatic, PERRLA, EOMI Respiratory: Clear to auscultation, Normal air movement Cardiovascular: Regular rate, Normal S1, Normal S2, No murmurs Abdominal: Normal bowel sounds, Soft, No tenderness, No masses Extremities: No clubbing, No cyanosis, No edema, Normal pulses, No tenderness/swelling Skin: No rashes, No breakdown, No significant lesion Neuro: Normal speech, Strength at 5/5 X4 ext, Normal tone, Sensation intact, C ranial nerves 3-12 NL, Reflexes 2+ Psych/Mental Status: Mental status NL, Mood NL Labs/Xrays Labs Test 08/29/24 21:16 08/29/24 14:24 08/29/24 13:14 Range/Units B-Type Natriuretic Peptide 42.66 0-100 pg/mL Troponin I High Sensitivity 6 </=34 ng/L White Blood Count 8.8 4.4-10.8 10^3/uL Red Blood Count 5.58 H 4.0-5.20 10^6/uL Hemoglobin 16.2 12.2-16.2 g/dL Hematocrit 47.1 H 36.0-46.0 % Mean Corpuscular Volume 84.4 80.0-100.0 fL Mean Corpuscular Hemoglobin 29.0 28.0-32.0 pg Mean Corpuscular Hemoglobin Concent 34.4 32.0-36.0 g/dL Red Cell Distribution Width 16.0 H 11.8-14.3 % Platelet Count 331 140-450 10^3/uL Mean Platelet Volume 8.1 6.9-10.8 fL Neutrophils (%) (Auto) 61.8 37.0-80.0 % Lymphocytes (%) (Auto) 28.0 10.0-50.0 % Monocytes (%) (Auto) 9.6 0.0-12.0 % Eosinophils (%) (Auto) 0.2 0.0-7.0 % Basophils (%) (Auto) 0.4 0.0-2.0 % Neutrophils # (Auto) 5.5 1.6-8.6 10 ^3/uL Lymphocytes # (Auto) 2.5 0.4-5.4 10 ^3/uL Monocytes # (Auto) 0.8 0-1.3 10 ^3/uL Eosinophils # (Auto) 0 0-0.8 10 ^3/uL Basophils # (Auto) 0 0-0.2 10 ^3/uL Nucleated Red Blood Cells 0.1 % D-Dimer, Quantitative 0.44 0.0-0.49 mg/L FEU Sodium Level 135 L 136-145 mmol/L Potassium Level 3.5 3.5-5.1 mmol/L Chloride Level 96 L 98-107 mmol/L Carbon Dioxide Level 23 20-31 mmol/L Anion Gap 16 H 5-15 Blood Urea Nitrogen 12 9-23 mg/dL Creatinine 0.93 0.550-1.02 mg/dL Glomerular Filtration Rate Calc 72 >90 mL/min BUN/Creatinine Ratio 12.9 10.0-20.0 Serum Glucose 130 H 74-106 mg/dL Hemoglobin A1c 5.1 <5.7 % A1C Calcium Level 10.0 8.7-10.4 mg/dL Assessment/Plan Assessment/Plan Assessment/plan Acute hypoxic respiratory failure, R/O pulmonary embolism Acute generalized body aches likely due to dehydration/electrolytes abnormalit ies Hx of Chronic home O2 requirement R/O systolic/diastolic heart failure Primary hypertension Hypothyroidism Dyslipidemia History of osteoarthritis History of pulmonary embolism and IVC filter placed in 2018 Plan -patient is currently on 4 L of oxygen through nasal cannula -initial chest x-ray showed no evidence of clear consolidations, grossly clear -D-dimer was normal range -Ordered CT chest w/o contrast -Ordered EKG and ECHO -ordered COVID and influenza A and B -IV NS 0.9% 1L bolus, keep maintenance of 60cc/hr until next morning -Resume eliquis 5mg bid -Restart lisinopril 10mg daily Goals of care discussed with the patient at bedside for >35min, FULL CODE Plan discussed with Dr. Naylor Plan discussed with: Patient My Orders Orders - [place] [facility] RESIDENT Procedure Category Date Status Time Admit ADMIT 08/29/24 Transmitted 22:28 Code Status CODE 08/29/24 Transmitted 22:28 Vital Signs FRIEDA 08/29/24 In Process 22:28 Review Orders With FRIEDA 08/29/24 In Process Adm. 22:28 Encourage Activity As FRIEDA 08/29/24 In Process Tolerate 22:28 Regular Diet DIET 08/30/24 Transmitted Breakfast Acetaminophen Tablet PHA 08/29/24 In Process (Tylenol Tablet) 22:30 Notify Of Changes FRIEDA 08/29/24 In Process From Base 22:28 Advance Directive FRIEDA 08/29/24 In Process 22:28 Basic Metabolic Panel LAB 08/30/24 Verified 04:00 Complete Blood Count LAB 08/30/24 Verified 04:00 Lipid Panel LAB 08/29/24 In Process 22:28 Patient Condition ORDERS 08/29/24 Transmitted 22:28 Allergies FRIEDA 08/29/24 In Process 22:28 Hydrocodone-Acet PHA 08/29/24 In Process 5/325mg Tab ([place] 22:30 Drug Screen LAB 08/29/24 Logged 22:28 Enoxaparin Sodium PHA 08/30/24 In Process (Lovenox) 10:00 Sodium Chloride 0.9% PHA 08/29/24 In Process 22:45 Magnesium LAB 08/29/24 In Process 22:35 Covid19 Antigen [facility] LAB 08/29/24 Logged Rapid Influenza A&B LAB 08/29/24 Logged 22:36 Electrocardigram EKG 08/29/24 Logged 22:37 Date of Service: Aug 29, 2024 Billing Provider: NAEEM NAYLOR MD Common Visit Codes: 58738-BFHELBH INP/OBS CARE (HIGH) Secondary Visit Codes: 80576-[id number] CARE PLAN 30 MINUTES [place] [facility] RESIDENT Aug 29, 2024 23:23
[2024-08-29] MEDS ORDERED: APIXABAN 5 MG TAB PO SCH (23:30)
[2024-08-29 23:33] LABS: Triglycerides 194 mg/dL (< 150)
[2024-08-29 23:34] LABS: LDL Cholesterol 41 mg/dL (< 100)
[2024-08-29 23:35] LABS: Cholesterol 171 mg/dL (< 200)
[2024-08-29 23:41] LABS: Urine Blood Negative /uL (Negative); Urine Clarity Turbid (Clear); Urine Color Light-Orange (Yellow); Urine Hyaline Cast FEW /lpf (0 - 2); Urine Mucus FEW (None Seen); Urine Protein, UAD 1+ (Negative); Urine Specific Gravity 1.026 (1.001-1.035); Urine Squamous Epithelial Cell FEW /hpf (<5); Urine Urobilinogen 2 mg/dL (Negative); Urine WBC 48 /HPF (0-5)
[2024-08-29 23:43] LABS: HDL Cholesterol 92 mg/dL (40-59)
[2024-08-29 23:45] LABS: Amphetamine Screen, Urine Neg (NEGATIVE); Barbiturate Scree,Urine Neg (NEGATIVE); Benzodiazephine Screen, Urine Neg (NEGATIVE); Cocaine Screen, Urine Neg (NEGATIVE); Opiate Scree,Urine Neg (NEGATIVE)
[2024-08-29 23:46] LABS: Cannabinoid Screen, Urine Neg (NEGATIVE); Phencyclidine Screen, Urine Neg (NEGATIVE)
--- NOTE | 2024-08-30 01:25 | DVH ---
CT SCAN CHEST WITHOUT CONTRAST CLINICAL HISTORY: R/O parenchymal lung disease or PNA TECHNIQUE: Helical axial scans are obtained from the thoracic inlet to the upper abdomen without intr avenous contrast injection. Coronal and sagittal reformatted images were generated from thin-section reconstructions. One or more of the following radiation dose reduction techniques were used for this examination: automated exposure control, adjustment of the mA and/or kV according to patient size, us e of iterative reconstruction technique. COMPARISON: Chest x-ray obtained earlier the same day. FINDINGS: Evaluation of vascular and other mediastinal structures is limited due to lack of contrast administra tion. Mediastinum: The heart is nonenlarged. No pericardial effusion. No mediastinal adenopathy noted. Lung parenchyma: Scattered mild atelectasis/scarring, mainly in the lingular region. No dominant cons olidation is identified. Pleura: No sizable pleural effusions or pneumothorax. Chest wall/axillae: No axillary adenopathy noted. Upper Abdomen: No acute findings as visualized. Osseous structures: Multilevel degenerative changes of the thoracic spine. IMPRESSION: No focal pulmonary consolidations. HS:Y
[2024-08-30] MEDS: HYDROcodone-ACET 5/325MG TAB PO PRN (03:59)
[2024-08-30 04:19] VITALS: BP 122/73; PULSE 105; RESP 15; TEMP 97.9; O2SAT 100
[2024-08-30 05:09] LABS: Rapid Influenza A Negative (Negative); Rapid Influenza B Negative (Negative)
[2024-08-30 05:10] LABS: COVID19 ANTIGEN SOFIA FIA NEGATIVE (NEGATIVE)
[2024-08-30 06:19] LABS: Basophils # (auto) 0 10 ^3/uL (0-0.2); Basophils % (auto) 0.3 % (0.0-2.0); Eosinophils # (auto) 0 10 ^3/uL (0-0.8); Hematocrit 44.7 % (36.0-46.0); Hemoglobin 15.3 g/dL (12.2-16.2); Lymphocytes # (auto) 2.3 10 ^3/uL (0.4-5.4); Lymphocytes % (auto) 21.3 % (10.0-50.0); Mean Corpuscular Hemoglobin 29.2 pg (28.0-32.0); Mean Corpuscular Hgb Conc. 34.2 g/dL (32.0-36.0); Mean Corpuscular Volume 85.5 fL (80.0-100.0); Monocytes % (auto) 9.3 % (0.0-12.0); Neutrophils # (auto) 7.4 10 ^3/uL (1.6-8.6); Neutrophils % (auto) 69.1 % (37.0-80.0); Nucleated Red Blood Cells % 0.1 %; Platelet Count (auto) 310 10^3/uL (140-450); Red Blood Cells 5.23 10^6/uL (4.0-5.20); Red Cell Distribution Width 16.1 % (11.8-14.3); White Blood Cell 10.7 10^3/uL (4.4-10.8)
[2024-08-30 06:31] LABS: Anion Gap 11 (5-15); Carbon Dioxide 28 mmol/L (20-31); Sodium 137 mmol/L (136-145)
[2024-08-30 06:33] LABS: Calcium 9.9 mg/dL (8.7-10.4); Chloride 98 mmol/L (98-107); Potassium 2.9 mmol/L (3.5-5.1)
[2024-08-30 06:37] LABS: Glucose 98 mg/dL (74-106)
[2024-08-30 06:38] LABS: BUN/Creatinine Ratio 9.9 (10.0-20.0); Blood Urea Nitrogen 21 mg/dL (9-23)
[2024-08-30] MEDS: PREGABALIN 25 MG CAP PO SCH (06:47)
[2024-08-30 08:00] VITALS: BP 122/73; PULSE 105; RESP 15; TEMP 97.9; O2SAT 100
[2024-08-30] MEDS ORDERED: LISINOPRIL 5 MG TAB PO SCH (10:00)
[2024-08-30] MEDS: MAGNESIUM SULFATE 1GM/100ML 100 ML IV ONE (11:39)
[2024-08-30] MEDS: ENOXAPARIN SOD 40 MG/0.4 ML SYRINGE SC SCH (11:39)
[2024-08-30] MEDS: SODIUM CHLORIDE 0.9% 1,000 ML IV ONE (11:40)
[2024-08-30] MEDS: POTASSIUM EFFERVESENT TAB 25 MEQ PO ONE (11:40)
[2024-08-30 12:00] VITALS: BP 102/69; PULSE 106; RESP 12; TEMP 98.2; O2SAT 98
[2024-08-30] MEDS: SODIUM CHLORIDE 0.9% 1,000 ML IV SCH ×2 (12:12→16:31)
[2024-08-30] MEDS: KETOROLAC TROMETH 30 MG/ML 1ML VIAL IV ONE (14:00)
[2024-08-30] MEDS: ONDANSETRON HCL 4 MG/2 ML VIAL IV ONE (14:00)
[2024-08-30 14:32] LABS: Potassium 3.5 mmol/L (3.5-5.1); Sodium 137 mmol/L (136-145)
[2024-08-30 14:33] LABS: Anion Gap 12 (5-15); Carbon Dioxide 27 mmol/L (20-31)
[2024-08-30 14:34] LABS: Calcium 9.3 mg/dL (8.7-10.4)
[2024-08-30 14:38] LABS: BUN/Creatinine Ratio 10.4 (10.0-20.0); Blood Urea Nitrogen 21 mg/dL (9-23)
[2024-08-30 14:40] LABS: Chloride 98 mmol/L (98-107); Glucose 118 mg/dL (74-106)
[2024-08-30 15:16] VITALS: BP 123/64; PULSE 97; RESP 19; TEMP 98.5; O2SAT 99
--- NOTE | 2024-08-30 16:11 | DVHPNRES ---
Progress Note Date Seen: Aug 30, 2024 Resident Creating Document: CHANDNI CORTES RESIDENT Medical Necessity Reason Pt with a Central, PICC or Fol: No Subjective Review of Systems 58-year-old female with past medical history of hypertension, neuropathy, degenerative disc disease, dyslipidemia, hypothyroidism, osteoarthritis, history of IVC filter placed in 2018 unable to be removed, pulmonary embolism in 2018 and has been on 4L of O2 at home through Nasal cannula, presented to the ED with chief complaint of acute shortness of breath and generalized body cramps. Patient states that shortness of breaths started yesterday and progressively got worse today without cough or sputum production. Patient also reported mild intermittent chest pain and states that has not been able to walk with her cane as normally due to the generalized muscle cramps. The patient denied fever/chills, or any other associated symptoms. On admission, patient was placed on 4 L of oxygen through nasal cannula, initial labs showed normal CBC and BNP with negative troponins. D-dimer was normal range, chest x-ray was grossly clear without evidence of clear consolidations. We will admit the patient for further assessment and management. Objective vital signs Vital Sign Date Time Temp Pulse Resp B/P (MAP) Pulse Ox O2 Delivery O2 Flow Rate FiO2 08/30/24 15:16 98.5 97 19 123/64 (83) 99 98.5 08/30/24 04:19 Room Air* 0 21 medications Current Medications Medications Dose Ordered Sig/Latha Route Start Time Stop Time Status Last Admin Dose Admin Acetaminophen 650 mg Q6HP PRN PO 08/29/24 22:30 Acetaminophen/ Hydrocodone Bitart 1 tab Q4HP PRN PO 08/29/24 22:30 08/30/24 03:59 1 TAB Enoxaparin Sodium 40 mg DAILY SC 08/30/24 10:00 08/30/24 11:39 40 MG Apixaban 5 mg BID PO 08/29/24 23:30 Hold Pregabalin 100 mg TID PO 08/30/24 06:00 08/30/24 15:04 100 MG Sodium Chloride 1,000 ml @ 150 mls/hr Q6H40M IV 08/30/24 16:00 Levothyroxine Sodium 50 mcg QAM@0600 PO 08/31/24 06:00 UNV Examination GENERAL: Not in acute distress. HEENT: EOMI, Moist mucous membranes. No scleral icterus. No cervical lymphadenopathy. LUNGS: Clear to auscultation bilaterally. No accessory muscle use. Patient is on 4L oxygen, [place] CARDIOVASCULAR: Regular rate and rhythm. No murmur. No JVD. ABDOMEN: Soft, nontender and nondistended. No palpable masses. EXTREMITIES: No edema. Nontender. SKIN: No rashes or lesions. Warm. NEUROLOGIC: Alert and oriented X3 laboratory and microbiology Laboratory Tests 08/30/24 14:06 08/30/24 05:52 Test 08/30/24 14:06 Range/Units Serum Glucose 118 H 74-106 mg/dL Problem List/Assessment/Plan Problem List/Assessment/Plan # Rhabdomyolysis secondary to possible hypothyroidism # YONG secondary to possible rhabdomyolysis # Acute hypoxic respiratory failure, Ruled out pulmonary embolism # Acute generalized body aches likely due to dehydration/electrolytes abnormalities # Hx of Chronic home O2 requirement, 4 L # R/O systolic/diastolic heart failure # Primary hypertension # Hypothyroidism # Dyslipidemia # History of osteoarthritis # History of pulmonary embolism and IVC filter placed in 2018 Plan - increase IV fluid to 150 mL per hour - monitor CPK - Consult Nephrology - re start home dose of levothyroxine, 50 mcg/daily -patient is currently on 4 L of oxygen through nasal cannula -initial chest x-ray showed no evidence of clear consolidations, grossly clear -D-dimer was normal range -Ordered CT chest w/o contrast -Ordered EKG and ECHO - COVID and influenza A and B- negative -Resume eliquis 5mg bid -Restart lisinopril 10mg daily Goals of care discussed with the patient for 27 min, FULL CODE Plan discussed with Dr. Tafoya Plan discussed with: Patient My Orders My Orders Orders - CHANDNI CORTES RESIDENT Procedure Category Date Status Time Sodium Chloride 0.9% PHA 08/30/24 In Process 16:00 Levothyroxine Tablet PHA 08/31/24 Logged (Synthroid Tablet) 06:00 Date of Service: Aug 30, 2024 Billing Provider: TYRA TAFOYA MD Common Visit Codes: [id number] INP/OBS CARE(HIGH) CHANDNI CORTES RESIDENT Aug 30, 2024 16:11 TYRA TAFOYA MD Aug 30, 2024 22:13
[2024-08-30] MEDS: OXYCODONE W/ ACETAMINOPHEN 5/325MG TABLET PO ONE (17:59)
--- NOTE | 2024-08-30 18:45 | ECG ---
[facility] Test Date: 2024-08-29 Test Time: 12:07:00 Pat Name: SHAAN MESSER Department: ED Room: 0287T Gender: F Auto Electrician: izabella : 1965 Requested By: FAVIO RASMUSSEN Order Number: [id number] Reading MD: Sony Wan Measurements Intervals [place] Rate: 108 P: 44 SC: 113 QRS: -18 QRSD: 85 T: -14 QT: 370 QTc: 496 Interpretive Statements Sinus tachycardia Atrial premature complex Left ventricular hypertrophy Inferior infarct, old Anterior Q waves, possibly due to LVH Baseline wander in lead(s) V1,V2,V5 Electronically Signed On 09-03-2024 20:31:19 PDT by Sony Wan Please click the below link to view image of tracing.
[2024-08-30 19:14] LABS: Erythrocyte Sedimentation Rate 5 mm/hr (0-20)
--- NOTE | 2024-08-30 19:25 | DVHSR ---
APPROVED REPORT EXAM: LIMITED Two-dimensional and M-mode echocardiogram with Doppler and color Doppler. Blood Pressure: 100/63 mmHg INDICATION Eval LVEF RISK FACTORS Obesity: Height: 5', Weight: 380 DIMENSIONS LVDd4.7 (3.8-5.7cm)LA (2D)3.9 (1.9-4.0cm)Aortic Root3.7 (2.0-3.7cm) LVDs3.4 (2.5-4.0cm)LA (MM) (1.9-4.0cm)Aortic Cusp Exc2.1 (1.5-2.0cm) EF (%) 55.0 (55-70%)Rt. Atrium4.0 (1.9-4.0cm)Asc. Aorta cm IVSd1.0 (0.7-1.1cm)RV (D) (1.8-2.4cm) PWd1.0 (0.7-1.1cm) Mitral Valve MitralMitral Stenosis E wave0.70m/sMV Mean GR.mmHg A wave0.90m/sMV Peak GR.mmHg E/A ratio0.82D MVAcm2 Aortic Valve Aortic ValveAortic Stenosis V11.00m/[place] Mean GR.6mmHg V21.60m/[place] Peak GR.11mmHg LVOT Diameter2.5 (1.8-2.4cm)Doppler AVA3.07cm2 Pulmonic Valve V20.90m/s Tricuspid Valve TR Velocity2.90m/s [id number] Other Information Quality : Technically LimitedRhythm : Technically limited study due to body habitus. Conclusion MILD LVH AND MILD LV DIASTOLIC DYSFUNCTION LV EF IS 65% DYSKINESIS OF IVS MODERATELY DILATED RA AND RV LIKELY CHRONIC RV STRAIN NORMAL VALVES NO EFFUSION MILD PULMONARY HYPERTENSION RVSP IS 40 MM OF HG AND IS HIGH
[2024-08-30 20:00] VITALS: PULSE 99; RESP 18; O2SAT 97
[2024-08-30 21:00] VITALS: BP 114/70; PULSE 99; RESP 17; TEMP 98.1; O2SAT 97
[2024-08-30] MEDS: OXYCODONE W/ ACETAMINOPHEN 5/325MG TABLET PO SCH (21:17)
--- NOTE | 2024-08-30 21:53 | DVH ---
INDICATION: renal failure TECHNIQUE: Multiple real-time sonographic images of the kidneys and bladder were obtained. COMPARISON: None FINDINGS: The right kidney measures 13.3 cm in length, which is normal in size. There is normal echog enicity of the right kidney. Hydronephrosis right kidney. The left kidney measures 11.9 cm in length, which is normal in size. There is normal echogenicity of the left kidney. No hydronephrosis. Bladder was not visualized.. IMPRESSION: 1. Right kidney measures 13.3 cm. Left kidney measures 11.9 cm. 2. Hydronephrosis right kidney. 3.. Bladder not visualized. HS:Y
[2024-08-31] VITALS (16 sets, daily range): BP systolic 102–146; BP diastolic 72–87; PULSE 69–103; RESP 16–19; TEMP 97.2–98.3; O2SAT 90–100
[2024-08-31] MEDS: LEVOTHYROXINE SODIUM 50 MCG TAB PO SCH (05:04)
[2024-08-31 06:08] LABS: Albumin 3.5 g/dL (3.2-4.8); Anion Gap 8 (5-15); BUN/Creatinine Ratio 24.7 (10.0-20.0); Basophils # (auto) 0 10 ^3/uL (0-0.2); Basophils % (auto) 0.3 % (0.0-2.0); Carbon Dioxide 28 mmol/L (20-31); Chloride 101 mmol/L (98-107); Eosinophils # (auto) 0.1 10 ^3/uL (0-0.8); Eosinophils % (auto) 1.4 % (0.0-7.0); Glucose 95 mg/dL (74-106); Hematocrit 38.1 % (36.0-46.0); Hemoglobin 12.9 g/dL (12.2-16.2); Lymphocytes # (auto) 2.5 10 ^3/uL (0.4-5.4); Lymphocytes % (auto) 36.3 % (10.0-50.0); Mean Corpuscular Hemoglobin 29.2 pg (28.0-32.0); Mean Corpuscular Hgb Conc. 33.8 g/dL (32.0-36.0); Mean Corpuscular Volume 86.2 fL (80.0-100.0); Monocytes # (auto) 0.6 10 ^3/uL (0-1.3); Monocytes % (auto) 8.9 % (0.0-12.0); Neutrophils # (auto) 3.6 10 ^3/uL (1.6-8.6); Neutrophils % (auto) 53.1 % (37.0-80.0); Nucleated Red Blood Cells % 0.1 %; Platelet Count (auto) 273 10^3/uL (140-450); Red Blood Cells 4.42 10^6/uL (4.0-5.20); Red Cell Distribution Width 15.9 % (11.8-14.3); Sodium 137 mmol/L (136-145); Total Protein 5.9 g/dL (5.7-8.2); White Blood Cell 6.9 10^3/uL (4.4-10.8)
[2024-08-31 06:27] LABS: Alanine Aminotransferase 63 U/L (7-40); Alkaline Phosphatase 222 U/L (46-116); Aspartate Aminotransferase 76 U/L (13-40); Bilirubin, Total 1.5 mg/dL (0.2-1.0); Blood Urea Nitrogen 24 mg/dL (9-23); Calcium 8.3 mg/dL (8.7-10.4); Creatine Kinase IFCC 746 U/L (34-145); Potassium 3.1 mmol/L (3.5-5.1)
[2024-08-31] MEDS: cefTRIAXone 1GM/50ML D5W 50 ML IV ONE (09:37)
[2024-08-31] MEDS: POTASSIUM CHL 20MEQ/100ML 100 ML IV SCH (09:38)
[2024-08-31] MEDS: APIXABAN 5 MG TAB PO SCH (09:38)
[2024-08-31] MEDS: IPRATROPIUM BROM 0.5 MG/2.5ML INH SOL NEB ONE (10:51)
[2024-08-31] MEDS: ALBUTEROL SULF 2.5 MG/0.5ML(0.5%) NEB SOLN NEB ONE (10:51)
--- NOTE | 2024-08-31 13:39 | DVH ---
EXAM: US LIVER CLINICAL HISTORY: Transamnitis TECHNIQUE: Grayscale and limited color flow doppler ultrasound of the right upper quadrant is perfor med. COMPARISON: ABDOMEN LIMITED on DOS: 08/17/20 Findings: Liver measures 18.9 cm in length with normal echotexture and contour. No evidence of focal hepatic le sions or intra- or extrahepatic ductal dilatation. Common bile duct measures 0.5 cm in diameter. Norm al hepatopedal flow noted within the portal vein. No perihepatic free fluid is noted. Cholecystectomy. Negative sonographic Feliciano's sign. Pancreas only partially visualized due to overlying bowel gas but is otherwise unremarkable. Right kidney measures 13.0 cm with normal contours, echotexture and cortical thickness. Mild hydronep hrosis. No evidence of calculi, cystic or solid renal lesions. Partially visualized inferior vena cava unremarkable. Impression: 1. No evidence of acute right upper quadrant abnormalities. 2. Hepatomegaly. 3. Mild right hydronephrosis.
[2024-08-31] MEDS: IPRATROPIUM BROM 0.5 MG/2.5ML INH SOL NEB SCH (13:58)
[2024-08-31] MEDS: ALBUTEROL SULF 2.5 MG/0.5ML(0.5%) NEB SOLN NEB SCH (13:58)
--- NOTE | 2024-08-31 15:05 | DVHINCON2 ---
Date of service: Aug 31, 2024 Referring Physician Aury Reason for Consultation Renal failure History of Present Illness Pt is a 58 y/o female with hx of HTN x 27 years has been well controlled, bariatric sx, neuropathy, degenerative disk disease, hypothyroidism, osteoarthritis, PE, O2 dependant. Admitted for acute hypoxic respiratory failure. On admission pt was found to have BUN 21, creat 2.02, GFR 28. Upon lab redraw on 08/31 BUN 24, creat 0.97, GFR 69. Pt denies hx of CKD. Denies NSAID use. Denies recent contrast studies. Nephrology consult for Renal failure. Past Medical History HTN, neuropathy, degenerative disk disease, hypothyroidism, osteoarthritis, PE, O2 dependant. Past Surgical History bariatric sx Allergies: Coded Allergies: Tramadol (Verified Allergy, Intermediate, unknown, 08/17/20) Ketorolac Tromethamine (Verified Allergy, Unknown, 11/15/19) Lidocaine (Verified Allergy, Unknown, 08/17/20) Morphine (Unverified Allergy, Unknown, 11/15/19) Verapamil (Unverified Allergy, Unknown, 11/15/19) Home Meds Active Scripts Potassium Chloride (POTASSIUM CHLORIDE CR) 10 Meq Tb, 20 MEQ PO BID for 5 Days, #20 TAB 0 Refills Prov:ALYSIA BLACKWELL NP 09/02/23 Gabapentin (Gabapentin) 300 Mg Cap, 300 MG PO TID, #60 CAP Prov:LINDA DIMAS MD 08/18/20 Reported Medications Alprazolam (Xanax) 0.5 Mg Tb, 1 TAB PO BID, #60 TAB 08/31/24 Paroxetine HCl (Paroxetine Hydrochloride) 30 Mg Tab, 30 MG PO DAILY, TAB 08/31/24 Loratadine (Claritin) 10 Mg Tab, 1 TAB PO DAILY, #30 TAB 5 Refills 08/31/24 Simvastatin (Simvastatin) 20 Mg Tab, 20 MG PO DAILY for 30 Days 08/31/24 Metoprolol Tartrate (Metoprolol Tartrate) 50 Mg Tab, 50 MG PO DAILY for 30 Days, MG 08/31/24 Hydrochlorothiazide (Hydrochlorothiazide) 25 Mg Tab, 25 MG PO DAILY for 30 Days, MG 08/31/24 Furosemide (Furosemide) 10 Mg/Ml Inj, 20 MG IM DAILY, INJ 08/31/24 Potassium Chloride (Potassium Chloride) 10 Meq/50 Ml Inj, 10 MEQ IV DAILY, INJ 08/31/24 Pregabalin (Lyrica) 100 Mg Cap, 1 CAP PO TID, #90 CAP 08/17/20 Oxycodone W/ Acetaminophen (Percocet 5/325MG) 1 Tab Tb, 1 TAB PO TID, #90 TAB 08/17/20 Apixaban Base (ELIQUIS) 5 Mg Tab, 5 MG PO BID, TAB 08/17/20 [xanax] No Conflict Check 03/03/10 [lotensin] No Conflict Check 03/03/10 [lopressor] No Conflict Check 03/03/10 [lisinupril] No Conflict Check 03/03/10 [clonodine] No Conflict Check 03/03/10 [asa] No Conflict Check 03/03/10 Current Medications Current Medications Medications (Trade) Dose Ordered Sig/Latha Route PRN Reason Start Time Stop Time Status Last Admin Levothyroxine Sodium (Synthroid Tablet) 50 mcg QAM@0600 PO 08/31/24 06:00 08/31/24 05:04 Apixaban (Eliquis) 5 mg BID PO 08/31/24 10:00 08/31/24 22:22 Potassium Chloride 100 ml @ 50 mls/hr Q2H IV 08/31/24 09:15 08/31/24 13:14 DC 08/31/24 14:31 Ceftriaxone Sodium 50 ml @ 100 mls/hr DAILY@09 IV 09/01/24 09:00 Albuterol (Ventolin Medneb) 2.5 mg Q4HR NEB 08/31/24 14:00 08/31/24 22:49 Ipratropium Samson (Atrovent Medneb) 0.5 mg Q4HR NEB 08/31/24 14:00 08/31/24 22:49 Family History: Cardiovascular disease G8 FATHER G8 SISTER Cerebrovascular accident (CVA) G8 SISTER Diabetes mellitus G8 MOTHER G8 BROTHER Hypertension G8 MOTHER G8 BROTHER G8 SISTER Review of Systems 10 systems reviewed and negative except as per HPI H&P Exam Vital Signs/I&O Vital Sign Date Time Temp Pulse Resp B/P (MAP) Pulse Ox O2 Delivery O2 Flow Rate FiO2 08/31/24 22:55 84 18 100 08/31/24 22:49 Nasal Cannula* 3 32 08/31/24 17:03 97.9 119/77 (91) 97.9 l Intake and Output 08/30/24 08/31/24 19:00 07:00 Intake Total 1640 ml 2290 ml Output Total 1200 ml Balance 1640 ml 1090 ml Intake Oral 440 ml 2290 ml IV Total 1200 ml Output Urine Total 1200 ml # Bowel Movements 1 Physical Exam Gen: NAD, appears stated age HEENT: PERRLA, mucous membranes moist, conjunctiva pink Lungs: Bilateral air entry, no rales Heart: RRR, normal S1 and S2 Adb: normoactive bowel sounds, nondistended, nontender, soft Ext: No edema Neuro: A&O x4 Labs/Diagnostic Data Labs/Diagnostic Data Laboratory Tests Test 08/31/24 17:24 08/31/24 15:15 08/31/24 05:15 08/30/24 14:06 Range/Units Creatine Kinase 554 H 746 H 1323 H 34-145 U/L Urine Creatinine 82.25 30.0-125.0 mg/dL Urine Sodium 16 L 40-220 mmol/L Urine Total Protein 11.1 1-14 mg/dL White Blood Count 6.9 # 4.4-10.8 10^3/uL Red Blood Count 4.42 4.0-5.20 10^6/uL Hemoglobin 12.9 # 12.2-16.2 g/dL Hematocrit 38.1 # 36.0-46.0 % Mean Corpuscular Volume 86.2 80.0-100.0 fL Mean Corpuscular Hemoglobin 29.2 28.0-32.0 pg Mean Corpuscular Hemoglobin Concent 33.8 32.0-36.0 g/dL Red Cell Distribution Width 15.9 H 11.8-14.3 % Platelet Count 273 140-450 10^3/uL Mean Platelet Volume 8.1 6.9-10.8 fL Neutrophils (%) (Auto) 53.1 37.0-80.0 % Lymphocytes (%) (Auto) 36.3 10.0-50.0 % Monocytes (%) (Auto) 8.9 0.0-12.0 % Eosinophils (%) (Auto) 1.4 0.0-7.0 % Basophils (%) (Auto) 0.3 0.0-2.0 % Neutrophils # (Auto) 3.6 1.6-8.6 10 ^3/uL Lymphocytes # (Auto) 2.5 0.4-5.4 10 ^3/uL Monocytes # (Auto) 0.6 0-1.3 10 ^3/uL Eosinophils # (Auto) 0.1 0-0.8 10 ^3/uL Basophils # (Auto) 0 0-0.2 10 ^3/uL Nucleated Red Blood Cells 0.1 % Sodium Level 137 137 136-145 mmol/L Potassium Level 3.1 L 3.5 3.5-5.1 mmol/L Chloride Level 101 98 98-107 mmol/L Carbon Dioxide Level 28 27 20-31 mmol/L Anion Gap 8 12 5-15 Blood Urea Nitrogen 24 H 21 9-23 mg/dL Creatinine 0.97 # 2.02 H 0.550-1.02 mg/dL Glomerular Filtration Rate Calc 69 28 >90 mL/min BUN/Creatinine Ratio 24.7 H 10.4 10.0-20.0 Serum Glucose 95 118 H 74-106 mg/dL Calcium Level 8.3 L 9.3 8.7-10.4 mg/dL Magnesium Level 1.9 1.6-2.6 mg/dL Iron Level 127 50-170 ug/dL Total Bilirubin 1.5 H 0.2-1.0 mg/dL Aspartate Amino Transferase (AST) 76 H 13-40 U/L Alanine Aminotransferase (ALT) 63 H 7-40 U/L Alkaline Phosphatase 222 H 46-116 U/L Troponin I High Sensitivity 63 *H </=34 ng/L Total Protein 5.9 5.7-8.2 g/dL Albumin 3.5 3.2-4.8 g/dL Beta HCG, Quantitative 3.2 1.5-4.2 mIU/mL Erythrocyte Sedimentation Rate 5 0-20 mm/hr C-Reactive Protein High Sensitivity 2.19 H <1.0 mg/dL Test 08/30/24 05:52 08/30/24 04:30 08/29/24 21:16 08/29/24 20:20 Range/Units White Blood Count 10.7 4.4-10.8 10^3/uL Red Blood Count 5.23 H 4.0-5.20 10^6/uL Hemoglobin 15.3 12.2-16.2 g/dL Hematocrit 44.7 36.0-46.0 % Mean Corpuscular Volume 85.5 80.0-100.0 fL Mean Corpuscular Hemoglobin 29.2 28.0-32.0 pg Mean Corpuscular Hemoglobin Concent 34.2 32.0-36.0 g/dL Red Cell Distribution Width 16.1 H 11.8-14.3 % Platelet Count 310 140-450 10^3/uL Mean Platelet Volume 8.0 6.9-10.8 fL Neutrophils (%) (Auto) 69.1 37.0-80.0 % Lymphocytes (%) (Auto) 21.3 10.0-50.0 % Monocytes (%) (Auto) 9.3 0.0-12.0 % Eosinophils (%) (Auto) 0.0 0.0-7.0 % Basophils (%) (Auto) 0.3 0.0-2.0 % Neutrophils # (Auto) 7.4 1.6-8.6 10 ^3/uL Lymphocytes # (Auto) 2.3 0.4-5.4 10 ^3/uL Monocytes # (Auto) 1.0 0-1.3 10 ^3/uL Eosinophils # (Auto) 0 0-0.8 10 ^3/uL Basophils # (Auto) 0 0-0.2 10 ^3/uL Nucleated Red Blood Cells 0.1 % Sodium Level 137 136-145 mmol/L Potassium Level 2.9 L 3.5-5.1 mmol/L Chloride Level 98 98-107 mmol/L Carbon Dioxide Level 28 20-31 mmol/L Anion Gap 11 5-15 Blood Urea Nitrogen 21 9-23 mg/dL Creatinine 2.12 #H 0.550-1.02 mg/dL Glomerular Filtration Rate Calc 27 >90 mL/min BUN/Creatinine Ratio 9.9 L 10.0-20.0 Serum Glucose 98 74-106 mg/dL Calcium Level 9.9 8.7-10.4 mg/dL Creatine Kinase 1505 H 34-145 U/L Thyroid Stimulating Hormone (TSH) 2.57 0.55-4.78 uIU/mL Free Thyroxine (T4) Calculated 1.54 0.89-1.76 ng/dL Influenza Type A Antigen Negative Negative Influenza Type B Antigen Negative Negative SARS-CoV-2 Antigen (Rapid) Negative NEGATIVE B-Type Natriuretic Peptide 42.66 0-100 pg/mL Urine Color Light-orange Yellow Urine Clarity Turbid H Clear Urine pH 6.0 5.0-9.0 Urine Specific [place] 1.026 1.001-1.035 Urine Protein 1+ H Negative Urine Ketones Trace Negative Urine Blood Negative Negative /uL Urine Nitrite Negative Negative Urine Bilirubin Negative Negative Urine Urobilinogen 2 H Negative mg/dL Urine Leukocyte Esterase 2+ Negative /uL Urine RBC 4 0 - 4 /hpf Urine Microscopic WBC 48 H 0-5 /HPF Urine Squamous Epithelial Cells Few <5 /hpf Urine Bacteria None seen None Seen /hpf Urine Hyaline Casts Few 0 - 2 /lpf Urine Mucus Few None Seen Urine Glucose Normal Normal mg/dL Urine Opiates Screen Neg NEGATIVE Urine Fentanyl Screen Neg NEGATIVE Urine Barbiturates Screen Neg NEGATIVE Urine Phencyclidine Screen Neg NEGATIVE Urine Amphetamines Screen Neg NEGATIVE Urine Benzodiazepines Screen Neg NEGATIVE Urine Cocaine Screen Neg NEGATIVE Urine Cannabinoids Screen Neg NEGATIVE Test 08/29/24 14:24 08/29/24 13:14 Range/Units Magnesium Level 1.6 1.6-2.6 mg/dL Troponin I High Sensitivity 6 6 </=34 ng/L Triglycerides Level 194 H < 150 mg/dL Cholesterol Level 171 < 200 mg/dL LDL Cholesterol 41 < 100 mg/dL HDL Cholesterol 92 H 40-59 mg/dL White Blood Count 8.8 4.4-10.8 10^3/uL Red Blood Count 5.58 H 4.0-5.20 10^6/uL Hemoglobin 16.2 12.2-16.2 g/dL Hematocrit 47.1 H 36.0-46.0 % Mean Corpuscular Volume 84.4 80.0-100.0 fL Mean Corpuscular Hemoglobin 29.0 28.0-32.0 pg Mean Corpuscular Hemoglobin Concent 34.4 32.0-36.0 g/dL Red Cell Distribution Width 16.0 H 11.8-14.3 % Platelet Count 331 140-450 10^3/uL Mean Platelet Volume 8.1 6.9-10.8 fL Neutrophils (%) (Auto) 61.8 37.0-80.0 % Lymphocytes (%) (Auto) 28.0 10.0-50.0 % Monocytes (%) (Auto) 9.6 0.0-12.0 % Eosinophils (%) (Auto) 0.2 0.0-7.0 % Basophils (%) (Auto) 0.4 0.0-2.0 % Neutrophils # (Auto) 5.5 1.6-8.6 10 ^3/uL Lymphocytes # (Auto) 2.5 0.4-5.4 10 ^3/uL Monocytes # (Auto) 0.8 0-1.3 10 ^3/uL Eosinophils # (Auto) 0 0-0.8 10 ^3/uL Basophils # (Auto) 0 0-0.2 10 ^3/uL Nucleated Red Blood Cells 0.1 % D-Dimer, Quantitative 0.44 0.0-0.49 mg/L FEU Sodium Level 135 L 136-145 mmol/L Potassium Level 3.5 3.5-5.1 mmol/L Chloride Level 96 L 98-107 mmol/L Carbon Dioxide Level 23 20-31 mmol/L Anion Gap 16 H 5-15 Blood Urea Nitrogen 12 9-23 mg/dL Creatinine 0.93 0.550-1.02 mg/dL Glomerular Filtration Rate Calc 72 >90 mL/min BUN/Creatinine Ratio 12.9 10.0-20.0 Serum Glucose 130 H 74-106 mg/dL Hemoglobin A1c 5.1 <5.7 % A1C Calcium Level 10.0 8.7-10.4 mg/dL Plan/Recommendation IMP YONG hemodynamically mediated Possible CKD 2- baseline creat unknown HTN R kidney hydronephrosis Acute hypoxic respiratory failure Hx of Chronic home O2 requirement Hypothyroidism History of PE REC - Serial chemistry panels, CBC, TSH, uric acid, phos, U/A, urine creat, urine Na, urine protein - Strict I&Os - Consider urology eval for R kidney hydronephrosis from renal U/S impression 08/30 - Blood pressure control - Avoidance of RAAS inhibition during time course of YONG - Avoidance of NSAIDs, contrast studies if able Thank you for the consultation Plan discussed with: Patient, Other (Dr. Tashi De Leon) [facility] Aug 31, 2024 15:04
--- NOTE | 2024-08-31 17:05 | DVHPNRES ---
Progress Note Date Seen: Aug 31, 2024 Resident Creating Document: MARY MANCIA RESIDENT Medical Necessity Reason Pt with a Central, PICC or Fol: No Subjective Review of Systems This is a 58-year-old female with past medical history of hypertension, neuropathy, degenerative disc disease, dyslipidemia, hypothyroidism, osteoarthritis, history of IVC filter placed in 2018 unable to be removed, pulmonary embolism in 2018 and has been on 4L of O2 at home through Nasal cannula, presented to the ED with chief complaint of acute shortness of breath and generalized body cramps. Patient states that shortness of breaths started yesterday and progressively got worse today without cough or sputum production. Patient also reported mild intermittent chest pain and states that has not been able to walk with her cane as normally due to the generalized muscle cramps. The patient denied fever/chills, or any other associated symptoms. On admission, patient was placed on 4 L of oxygen through nasal cannula, initial labs showed normal CBC and BNP with negative troponins. D-dimer was normal range, chest x-ray was grossly clear without evidence of clear consolidations. We will admit the patient for further assessment and management. Past medical history: hypertension, neuropathy, degenerative disc disease, dyslipidemia, hypothyroidism, osteoarthritis, history of IVC filter placed in 2018 unable to be removed, pulmonary embolism in 2018 and has been on 4L of O2 at home through Nasal cannula. The patient stated that in 2018 before doing bariatric surgery they placed an inferior vena cava filter prophylactically and after the surgery she developed pulmonary embolism. Later on they were not able to remove the IVC filter due to "perforation". Home medications: Lisinopril, hydrochlorothiazide, metoprolol, Lyrica, Percocet, Eliquis 5 mg b.i.d. (patient does not remember the dose of the medications). Surgical history: Bariatric surgery in 2018 Social history: Reports chronic alcohol use but stopped this time, quit smoking long time ago and denies drugs intake. Patient seen and examined at bedside. Reports chest pain, left-sided, pressure type in nature exacerbates on exertion and comes on rest . EKG repeated, nonspecific T-wave changes, troponin repeated increased to Objective vital signs Vital Sign Date Time Temp Pulse Resp B/P (MAP) Pulse Ox O2 Delivery O2 Flow Rate FiO2 08/31/24 14:08 75 16 99 08/31/24 13:58 Nasal Cannula* 3 32 08/31/24 13:58 97.2 130/74 97.2 Total Intake and Output 08/30/24 08/30/24 08/31/24 15:00 23:00 07:00 Intake Total 1440 ml 690 ml 1800 ml Output Total 1200 ml Balance 1440 ml 690 ml 600 ml medications Current Medications Medications Dose Ordered Sig/Latha Route Start Time Stop Time Status Last Admin Dose Admin Acetaminophen 650 mg Q6HP PRN PO 08/29/24 22:30 Acetaminophen/ Hydrocodone Bitart 1 tab Q4HP PRN PO 08/29/24 22:30 08/30/24 03:59 1 TAB Pregabalin 100 mg TID PO 08/30/24 06:00 08/31/24 14:31 100 MG Levothyroxine Sodium 50 mcg QAM@0600 PO 08/31/24 06:00 08/31/24 05:04 50 MCG Oxycodone/ Acetaminophen 1 tab TID PO 08/30/24 22:00 08/31/24 14:31 1 TAB Apixaban 5 mg BID PO 08/31/24 10:00 08/31/24 09:38 5 MG Ceftriaxone Sodium 50 ml @ 100 mls/hr DAILY@09 IV 09/01/24 09:00 Albuterol 2.5 mg Q4HR NEB 08/31/24 14:00 08/31/24 13:58 2.5 MG Ipratropium [place] 0.5 mg Q4HR NEB 08/31/24 14:00 08/31/24 13:58 0.5 MG laboratory and microbiology Laboratory Tests 08/31/24 05:15 Test 08/31/24 05:15 Range/Units Serum Glucose 95 74-106 mg/dL Problem List/Assessment/Plan Problem List/Assessment/Plan Acute hypoxic respiratory failure, ruled out pulmonary embolism Acute generalized body aches likely due to dehydration/electrolytes abnormalities Chronic respiratory failure-3 L home oxygen History of pulmonary embolism and IVC filter placed in 2018 -nebulized treatments q.4 scheduled, CPAP at nighttime -wean off oxygen -CT chest shows no consolidation -Eliquis 5 mg b.i.d. Acute chest pain, rule out ACS Essential hypertension Rule out systolic/diastolic heart failure -echocardiogram shows mild LVH, mild LV diastolic dysfunction. LVEF 65%. Moderate dilation RA, RV, chronic RV strain. Mild pulmonary hypertension, RVSP 40 -troponin 6, 6, 63 -BNP 42 -cardiology consulted Acute complicated cystitis with right hydronephrosis Rhabdomyolysis secondary to possible hypothyroidism YONG secondary to possible rhabdomyolysis Hypokalemia -IV NS 150 cc/hour -bladder scan -nephrology consulted - creatinine 0.97 from 2.12 -CK 1500, downtrended to 746 -Kidney ultrasound shows right kidney hydronephrosis -IV ceftriaxone 1 g Transaminitis Liver ultrasound shows no evidence of right upper quadrant abnormalities. Hepatomegaly. Mild right hydronephrosis. Hypothyroidism Levothyroxine 50 mcg daily Dyslipidemia Could not started atorvastatin given transaminitis Counseled regarding lifestyle measures History of Andree-en-Y bypass Iron WNL, B12, folate levels pending PT eval requested Goals of care discussed with the patient at bedside for >35min, FULL CODE Plan discussed with Dr. Tafoya Plan discussed with: Patient My Orders My Orders Orders - MARY MANCIA Procedure Category Date Status Time LIVER US 08/31/24 Resulted 09:11 Strict I & O FRIEDA 08/31/24 In Process 09:40 Pt Request For Service PT 08/31/24 Logged 09:44 Mrsa Screen ANNE 08/31/24 In Process 10:03 Bipap/Cpap For Sleep RT 08/31/24 Logged Apnea 10:22 Albuterol Medneb PHA 08/31/24 In Process (Ventolin Medneb) 14:00 Ipratropium Medneb PHA 08/31/24 In Process (Atrovent Medneb) 14:00 Vitamin B12 LAB 08/31/24 In Process 10:22 Vitamin D, 25-Hydroxy LAB 08/31/24 In Process 10:22 Bladder Scan ORDERS 08/31/24 Transmitted 10:22 Transfer Orders XFER 08/31/24 Transmitted 12:52 Window Treatment Installer ORDERS 08/31/24 Transmitted 12:52 * Cardiology Consult CONS 08/31/24 Transmitted 12:57 Date of Service: Aug 31, 2024 Billing Provider: TYRA TAFOYA MD Common Visit Codes: [id number] INP/OBS CARE(HIGH) MARY MANCIA Aug 31, 2024 17:05 TYRA TAFOYA MD Sep 01, 2024 01:55
--- NOTE | 2024-08-31 17:32 | DVHINCON2 ---
Date Seen: Aug 31, 2024 Referring Physician MD [place] resident Reason for Consultation Chest pain, nonspecific EKG changes History of Present Illness This is a 58-year-old female patient who presents to the emergency room with chief complaint of generalized body cramping and chest pain. The patient reports that pain began two days ago. She describes the chest pain as unprovoked, intermittent, pressure-like in nature, left-sided and nonradiating. Initial twelve lead electrocardiogram reveals sinus tachycardia with Q-waves seen in anterior leads. Initial troponin level of 6ng/L with up trend and current peak level at 63ng/L. Significant past medical history includes hypertension, dyslipidemia, pulmonary hypertension, pulmonary embolism (on Eliquis), history of alcohol abuse, tobacco use, and morbid obesity. The patient states that she sees interactive account manager in the outpatient setting. She reports an angiogram that was done in 2019 in which no catheter based intervention was deemed necessary. She also reports a stress test approximately two years ago that was normal. Past Medical History Past medical history reviewed. No other significant than mentioned above. Past Surgical History Cholecystectomy Bariatric surgery Appendectomy Right knee meniscus repair Family History: Cardiovascular disease G8 FATHER G8 SISTER Cerebrovascular accident (CVA) G8 SISTER Diabetes mellitus G8 MOTHER G8 BROTHER Hypertension G8 MOTHER G8 BROTHER G8 SISTER Family History Family history reviewed. Social History Patient has a 10 pack-year history, quit smoking approximately 30 years ago Denies any illicit drug use Patient admits to previous alcohol abuse, quit in 2008 Allergies: Coded Allergies: Tramadol (Verified Allergy, Intermediate, unknown, 08/17/20) Ketorolac Tromethamine (Verified Allergy, Unknown, 11/15/19) Lidocaine (Verified Allergy, Unknown, 08/17/20) Morphine (Unverified Allergy, Unknown, 11/15/19) Verapamil (Unverified Allergy, Unknown, 11/15/19) Home Meds Active Scripts Potassium Chloride (POTASSIUM CHLORIDE CR) 10 Meq Tb, 20 MEQ PO BID for 5 Days, #20 TAB 0 Refills Prov:ALYSIA BLACKWELL NP 09/02/23 Gabapentin (Gabapentin) 300 Mg Cap, 300 MG PO TID, #60 CAP Prov:LINDA DIMAS MD 08/18/20 Reported Medications Pregabalin (Lyrica) 100 Mg Cap, 1 CAP PO TID, #90 CAP 08/17/20 Oxycodone W/ Acetaminophen (Percocet 5/325MG) 1 Tab Tb, 1 TAB PO TID, #90 TAB 08/17/20 Apixaban Base (ELIQUIS) 5 Mg Tab, 5 MG PO BID, TAB 08/17/20 [xanax] No Conflict Check 03/03/10 [lotensin] No Conflict Check 03/03/10 [lopressor] No Conflict Check 03/03/10 [lisinupril] No Conflict Check 03/03/10 [clonodine] No Conflict Check 03/03/10 [asa] No Conflict Check 03/03/10 Home Meds Home medications reviewed. Current Medications Current Medications Medications (Trade) Dose Ordered Sig/Latha Route PRN Reason Start Time Stop Time Status Last Admin Levothyroxine Sodium (Synthroid Tablet) 50 mcg QAM@0600 PO 08/31/24 06:00 08/31/24 05:04 Oxycodone/ Acetaminophen (Percocet 5/ 325MG Tablet) 1 tab TID PO 08/30/24 22:00 08/31/24 14:31 Apixaban (Eliquis) 5 mg BID PO 08/31/24 10:00 08/31/24 09:38 Potassium Chloride 100 ml @ 50 mls/hr Q2H IV 08/31/24 09:15 08/31/24 13:14 DC 08/31/24 14:31 Ceftriaxone Sodium 50 ml @ 100 mls/hr DAILY@09 IV 09/01/24 09:00 Albuterol (Ventolin Medneb) 2.5 mg Q4HR NEB 08/31/24 14:00 08/31/24 13:58 Ipratropium [place] (Atrovent Medneb) 0.5 mg Q4HR NEB 08/31/24 14:00 08/31/24 13:58 Review of Systems Constitutional: Generalized body cramping Ears, Nose, & Throat: No symptom reported Eyes: No symptom reported Neurological: No symptoms reported Pulmonary/Respiratory: No symptoms reported Cardiovascular: Chest pain Gastrointestinal: No symptom reported Genitourinary: No symptom reported Musculoskeletal: No symptom reported Skin: No symptom reported Psychiatric: No symptom reported Endocrine: No symptom reported Hematologic/Lymphatic: No symptom reported Vital Signs Vital Signs Date Time Temp Pulse Resp B/P (MAP) Pulse Ox O2 Delivery O2 Flow Rate FiO2 08/31/24 17:03 97.9 89 19 119/77 (91) 98 97.9 08/31/24 13:58 Nasal Cannula* 3 32 Physical Exam General Appearance: Cooperative. Morbidly obese Pulmonary/Respiratory: Clear, bilateral breaths sounds. Cardiovascular/Chest: Regular rate and rhythm. Peripheral Pulses: 2+ Radial (R). 2+ Radial (L). 2+ Pedal (R). 2+ Pedal (L) Abdominal Exam: Normal bowel sounds. Ankle Exam: Negative ankle edema Lower extremities: Negative lower extremity edema Neuro/Mental Status: A/OX4, coherent. Thoughts/Psych: Normal thought pattern. Appropriate mood and affect. Good judgment and insight. Appearance: No acute distress. Skin Exam: Normal inspection. Normal color. Warm and dry. Labs/Diagnostic Data Labs Test 08/31/24 05:15 08/30/24 14:06 08/30/24 05:52 08/30/24 04:30 Range/Units White Blood Count 6.9 # 4.4-10.8 10^3/uL Red Blood Count 4.42 4.0-5.20 10^6/uL Hemoglobin 12.9 # 12.2-16.2 g/dL Hematocrit 38.1 # 36.0-46.0 % Mean Corpuscular Volume 86.2 80.0-100.0 fL Mean Corpuscular Hemoglobin 29.2 28.0-32.0 pg Mean Corpuscular Hemoglobin Concent 33.8 32.0-36.0 g/dL Red Cell Distribution Width 15.9 H 11.8-14.3 % Platelet Count 273 140-450 10^3/uL Mean Platelet Volume 8.1 6.9-10.8 fL Neutrophils (%) (Auto) 53.1 37.0-80.0 % Lymphocytes (%) (Auto) 36.3 10.0-50.0 % Monocytes (%) (Auto) 8.9 0.0-12.0 % Eosinophils (%) (Auto) 1.4 0.0-7.0 % Basophils (%) (Auto) 0.3 0.0-2.0 % Neutrophils # (Auto) 3.6 1.6-8.6 10 ^3/uL Lymphocytes # (Auto) 2.5 0.4-5.4 10 ^3/uL Monocytes # (Auto) 0.6 0-1.3 10 ^3/uL Eosinophils # (Auto) 0.1 0-0.8 10 ^3/uL Basophils # (Auto) 0 0-0.2 10 ^3/uL Nucleated Red Blood Cells 0.1 % Sodium Level 137 136-145 mmol/L Potassium Level 3.1 L 3.5-5.1 mmol/L Chloride Level 101 98-107 mmol/L Carbon Dioxide Level 28 20-31 mmol/L Anion Gap 8 5-15 Blood Urea Nitrogen 24 H 9-23 mg/dL Creatinine 0.97 # 0.550-1.02 mg/dL Glomerular Filtration Rate Calc 69 >90 mL/min BUN/Creatinine Ratio 24.7 H 10.0-20.0 Serum Glucose 95 74-106 mg/dL Calcium Level 8.3 L 8.7-10.4 mg/dL Magnesium Level 1.9 1.6-2.6 mg/dL Iron Level 127 50-170 ug/dL Total Bilirubin 1.5 H 0.2-1.0 mg/dL Aspartate Amino Transferase (AST) 76 H 13-40 U/L Alanine Aminotransferase (ALT) 63 H 7-40 U/L Alkaline Phosphatase 222 H 46-116 U/L Creatine Kinase 746 H 34-145 U/L Troponin I High Sensitivity 63 *H </=34 ng/L Total Protein 5.9 5.7-8.2 g/dL Albumin 3.5 3.2-4.8 g/dL Erythrocyte Sedimentation Rate 5 0-20 mm/hr C-Reactive Protein High Sensitivity 2.19 H <1.0 mg/dL Thyroid Stimulating Hormone (TSH) 2.57 0.55-4.78 uIU/mL Free Thyroxine (T4) Calculated 1.54 0.89-1.76 ng/dL Influenza Type A Antigen Negative Negative Influenza Type B Antigen Negative Negative SARS-CoV-2 Antigen (Rapid) Negative NEGATIVE Test 08/29/24 21:16 08/29/24 20:20 08/29/24 14:24 08/29/24 13:14 Range/Units B-Type Natriuretic Peptide 42.66 0-100 pg/mL Urine Color Light-orange Yellow Urine Clarity Turbid H Clear Urine pH 6.0 5.0-9.0 Urine Specific [place] 1.026 1.001-1.035 Urine Protein 1+ H Negative Urine Ketones Trace Negative Urine Blood Negative Negative /uL Urine Nitrite Negative Negative Urine Bilirubin Negative Negative Urine Urobilinogen 2 H Negative mg/dL Urine Leukocyte Esterase 2+ Negative /uL Urine RBC 4 0 - 4 /hpf Urine Microscopic WBC 48 H 0-5 /HPF Urine Squamous Epithelial Cells Few <5 /hpf Urine Bacteria None seen None Seen /hpf Urine Hyaline Casts Few 0 - 2 /lpf Urine Mucus Few None Seen Urine Glucose Normal Normal mg/dL Urine Opiates Screen Neg NEGATIVE Urine Fentanyl Screen Neg NEGATIVE Urine Barbiturates Screen Neg NEGATIVE Urine Phencyclidine Screen Neg NEGATIVE Urine Amphetamines Screen Neg NEGATIVE Urine Benzodiazepines Screen Neg NEGATIVE Urine Cocaine Screen Neg NEGATIVE Urine Cannabinoids Screen Neg NEGATIVE Triglycerides Level 194 H < 150 mg/dL Cholesterol Level 171 < 200 mg/dL LDL Cholesterol 41 < 100 mg/dL HDL Cholesterol 92 H 40-59 mg/dL D-Dimer, Quantitative 0.44 0.0-0.49 mg/L FEU Hemoglobin A1c 5.1 <5.7 % A1C Assessment Chest pain, rule out coronary ischemia Hypertension Dyslipidemia History of pulmonary embolism (on Eliquis) Pulmonary hypertension History of alcohol abuse History of tobacco use Morbidly obese Plan/Recommendation We will continue with the following plan/recommendations (Dr. Natarajan): * Transthoracic echocardiogram reveals an EF of 65%, RVSP 40 mmHg * Chest pain protocol * HEART score: 4 points * JUANPABLO score: 2 points * Blood pressure control * Close Cardiac surveillance * Nuclear stress test Patient seen and examined at bedside with . Given the patient's clinical presentation, comorbidities, and elevated HEART score, the patient was offered a nuclear stress test. Patient is agreeable. We will schedule the patient to undergo stress test on 09/01/2024. In the meantime, continue with medical management. Thank you for allowing us to care for this patient. Please call with any questions or concerns. Critical care time spent: 44 minutes This medical document was created using an electronic medical record system with voice recognition software and computerized dictation system. Although this document has been carefully reviewed, there might still be some phonetic and typographical errors. Occasional wrong-word or ``sound-alike substitutions may have occurred due to the inherent limitations of voice recognition software. These areas are purely typographical due to imperfections of the software programs and do not reflect any compromise in the patient's medical care. Please read the chart carefully and recognize, using context, where these substitutions have occurred. Plan discussed with: Patient NYHA Physical activity limitations: NA Date of Service: Aug 31, 2024 Billing Provider: PEDRITO ARREDONDO Cardiology Common Codes: [id number] INP/OBS CARE (High) Cardiology Consultation Codes: [id number] CONSULT <45MIN PEDRITO ARREDONDO Aug 31, 2024 17:32
[2024-08-31 21:04] LABS: Protein, Urine 11.1 mg/dL (1-14)
[2024-08-31 21:07] LABS: Creatinine, Urine 82.25 mg/dL (30.0-125.0)
[2024-08-31] MEDS ORDERED: SIMV20TA20 PO (22:35)
[2024-08-31] MEDS ORDERED: FUR20I IM (22:35)
[2024-08-31] MEDS ORDERED: METO-158 PO (22:35)
[2024-08-31] MEDS ORDERED: POTA10IN6 IV (22:35)
[2024-08-31] MEDS ORDERED: PARO-181 PO (22:40)
--- NOTE | 2024-08-31 23:11 | DVHINCON2 ---
Date Seen: Aug 31, 2024 Referring Physician MD [place] resident Reason for Consultation Chest pain, nonspecific EKG changes History of Present Illness This is a 58-year-old female with a past medical history of hypertension, dyslipidemia, pulmonary hypertension, pulmonary embolism (on Eliquis), history of alcohol abuse, tobacco use, and morbid obesity who presents to the emergency room with a complaint of generalized body cramping and chest pain. The patient reports that pain began two days ago. She describes the chest pain as unprovoked, intermittent, pressure-like in nature, left-sided and nonradiating. Initial twelve lead electrocardiogram reveals sinus tachycardia with Q-waves seen in anterior leads. Initial troponin level of 6ng/L with up trend and current peak level at 63ng/L. Chest x-ray showed NAD. She reports an angiogram that was done in 2019 in which no catheter based intervention was deemed necessary. She also reports a stress test approximately two years ago that was normal. Patient was admitted to the hospital. I am asked to consult on this patient. Past Medical History Past medical history reviewed. No other significant than mentioned above. Past Surgical History Cholecystectomy Bariatric surgery Appendectomy Right knee meniscus repair Family History: Cardiovascular disease G8 FATHER G8 SISTER Cerebrovascular accident (CVA) G8 SISTER Diabetes mellitus G8 MOTHER G8 BROTHER Hypertension G8 MOTHER G8 BROTHER G8 SISTER Allergies: Coded Allergies: Tramadol (Verified Allergy, Intermediate, unknown, 08/17/20) Ketorolac Tromethamine (Verified Allergy, Unknown, 11/15/19) Lidocaine (Verified Allergy, Unknown, 08/17/20) Morphine (Unverified Allergy, Unknown, 11/15/19) Verapamil (Unverified Allergy, Unknown, 11/15/19) Home Meds Active Scripts Potassium Chloride (POTASSIUM CHLORIDE CR) 10 Meq Tb, 20 MEQ PO BID for 5 Days, #20 TAB 0 Refills Prov:ALYSIA BLACKWELL NP 09/02/23 Gabapentin (Gabapentin) 300 Mg Cap, 300 MG PO TID, #60 CAP Prov:LINDA DIMAS MD 08/18/20 Reported Medications Alprazolam (Xanax) 0.5 Mg Tb, 1 TAB PO BID, #60 TAB 08/31/24 Paroxetine HCl (Paroxetine Hydrochloride) 30 Mg Tab, 30 MG PO DAILY, TAB 08/31/24 Loratadine (Claritin) 10 Mg Tab, 1 TAB PO DAILY, #30 TAB 5 Refills 08/31/24 Simvastatin (Simvastatin) 20 Mg Tab, 20 MG PO DAILY for 30 Days 08/31/24 Metoprolol Tartrate (Metoprolol Tartrate) 50 Mg Tab, 50 MG PO DAILY for 30 Days, MG 08/31/24 Hydrochlorothiazide (Hydrochlorothiazide) 25 Mg Tab, 25 MG PO DAILY for 30 Days, MG 08/31/24 Furosemide (Furosemide) 10 Mg/Ml Inj, 20 MG IM DAILY, INJ 08/31/24 Potassium Chloride (Potassium Chloride) 10 Meq/50 Ml Inj, 10 MEQ IV DAILY, INJ 08/31/24 Pregabalin (Lyrica) 100 Mg Cap, 1 CAP PO TID, #90 CAP 08/17/20 Oxycodone W/ Acetaminophen (Percocet 5/325MG) 1 Tab Tb, 1 TAB PO TID, #90 TAB 08/17/20 Apixaban Base (ELIQUIS) 5 Mg Tab, 5 MG PO BID, TAB 08/17/20 [xanax] No Conflict Check 03/03/10 [lotensin] No Conflict Check 03/03/10 [lopressor] No Conflict Check 03/03/10 [lisinupril] No Conflict Check 03/03/10 [clonodine] No Conflict Check 03/03/10 [asa] No Conflict Check 03/03/10 Current Medications Current Medications Medications (Trade) Dose Ordered Sig/Latha Route PRN Reason Start Time Stop Time Status Last Admin Levothyroxine Sodium (Synthroid Tablet) 50 mcg QAM@0600 PO 08/31/24 06:00 08/31/24 05:04 Oxycodone/ Acetaminophen (Percocet 5/ 325MG Tablet) 1 tab TID PO 08/30/24 22:00 08/31/24 14:31 Apixaban (Eliquis) 5 mg BID PO 08/31/24 10:00 08/31/24 09:38 Potassium Chloride 100 ml @ 50 mls/hr Q2H IV 08/31/24 09:15 08/31/24 13:14 DC 08/31/24 14:31 Ceftriaxone Sodium 50 ml @ 100 mls/hr DAILY@09 IV 09/01/24 09:00 Albuterol (Ventolin Medneb) 2.5 mg Q4HR NEB 08/31/24 14:00 08/31/24 13:58 Ipratropium [place] (Atrovent Medneb) 0.5 mg Q4HR NEB 08/31/24 14:00 08/31/24 13:58 Review of Systems Constitutional: Generalized body cramping Ears, Nose, & Throat: No symptom reported Eyes: No symptom reported Neurological: No symptoms reported Pulmonary/Respiratory: No symptoms reported Cardiovascular: Chest pain Gastrointestinal: No symptom reported Genitourinary: No symptom reported Musculoskeletal: No symptom reported Skin: No symptom reported Psychiatric: No symptom reported Endocrine: No symptom reported Hematologic/Lymphatic: No symptom reported Vital Signs Vital Signs Date Time Temp Pulse Resp B/P (MAP) Pulse Ox O2 Delivery O2 Flow Rate FiO2 08/31/24 17:03 97.9 89 19 119/77 (91) 98 97.9 08/31/24 13:58 Nasal Cannula* 3 32 Physical Exam GENERAL: Alert and oriented x 3. No acute distress. Morbidly obese. EYES: PERRL, EOMI. Anicteric. HENT: Moist mucous membranes. LUNGS: Clear to auscultation bilaterally. CARDIOVASCULAR: Regular rate and rhythm. ABDOMEN: Soft, nontender and nondistended. EXTREMITIES: No edema. NEUROLOGIC: No focal neurological deficits. SKIN: Warm, dry. Labs/Diagnostic Data Labs Test 08/31/24 17:24 08/31/24 05:15 08/30/24 14:06 08/30/24 05:52 Range/Units White Blood Count 6.9 # 4.4-10.8 10^3/uL Red Blood Count 4.42 4.0-5.20 10^6/uL Hemoglobin 12.9 # 12.2-16.2 g/dL Hematocrit 38.1 # 36.0-46.0 % Mean Corpuscular Volume 86.2 80.0-100.0 fL Mean Corpuscular Hemoglobin 29.2 28.0-32.0 pg Mean Corpuscular Hemoglobin Concent 33.8 32.0-36.0 g/dL Red Cell Distribution Width 15.9 H 11.8-14.3 % Platelet Count 273 140-450 10^3/uL Mean Platelet Volume 8.1 6.9-10.8 fL Neutrophils (%) (Auto) 53.1 37.0-80.0 % Lymphocytes (%) (Auto) 36.3 10.0-50.0 % Monocytes (%) (Auto) 8.9 0.0-12.0 % Eosinophils (%) (Auto) 1.4 0.0-7.0 % Basophils (%) (Auto) 0.3 0.0-2.0 % Neutrophils # (Auto) 3.6 1.6-8.6 10 ^3/uL Lymphocytes # (Auto) 2.5 0.4-5.4 10 ^3/uL Monocytes # (Auto) 0.6 0-1.3 10 ^3/uL Eosinophils # (Auto) 0.1 0-0.8 10 ^3/uL Basophils # (Auto) 0 0-0.2 10 ^3/uL Nucleated Red Blood Cells 0.1 % Sodium Level 137 136-145 mmol/L Potassium Level 3.1 L 3.5-5.1 mmol/L Chloride Level 101 98-107 mmol/L Carbon Dioxide Level 28 20-31 mmol/L Anion Gap 8 5-15 Blood Urea Nitrogen 24 H 9-23 mg/dL Creatinine 0.97 # 0.550-1.02 mg/dL Glomerular Filtration Rate Calc 69 >90 mL/min BUN/Creatinine Ratio 24.7 H 10.0-20.0 Serum Glucose 95 74-106 mg/dL Calcium Level 8.3 L 8.7-10.4 mg/dL Magnesium Level 1.9 1.6-2.6 mg/dL Iron Level 127 50-170 ug/dL Total Bilirubin 1.5 H 0.2-1.0 mg/dL Aspartate Amino Transferase (AST) 76 H 13-40 U/L Alanine Aminotransferase (ALT) 63 H 7-40 U/L Alkaline Phosphatase 222 H 46-116 U/L Troponin I High Sensitivity 63 *H </=34 ng/L Total Protein 5.9 5.7-8.2 g/dL Albumin 3.5 3.2-4.8 g/dL Erythrocyte Sedimentation Rate 5 0-20 mm/hr C-Reactive Protein High Sensitivity 2.19 H <1.0 mg/dL Thyroid Stimulating Hormone (TSH) 2.57 0.55-4.78 uIU/mL Free Thyroxine (T4) Calculated 1.54 0.89-1.76 ng/dL Test 08/30/24 04:30 08/29/24 21:16 6/6/25 20:20 08/29/24 14:24 Range/Units Influenza Type A Antigen Negative Negative Influenza Type B Antigen Negative Negative SARS-CoV-2 Antigen (Rapid) Negative NEGATIVE B-Type Natriuretic Peptide 42.66 0-100 pg/mL Urine Color Light-orange Yellow Urine Clarity Turbid H Clear Urine pH 6.0 5.0-9.0 Urine Specific [place] 1.026 1.001-1.035 Urine Protein 1+ H Negative Urine Ketones Trace Negative Urine Blood Negative Negative /uL Urine Nitrite Negative Negative Urine Bilirubin Negative Negative Urine Urobilinogen 2 H Negative mg/dL Urine Leukocyte Esterase 2+ Negative /uL Urine RBC 4 0 - 4 /hpf Urine Microscopic WBC 48 H 0-5 /HPF Urine Squamous Epithelial Cells Few <5 /hpf Urine Bacteria None seen None Seen /hpf Urine Hyaline Casts Few 0 - 2 /lpf Urine Mucus Few None Seen Urine Glucose Normal Normal mg/dL Urine Opiates Screen Neg NEGATIVE Urine Fentanyl Screen Neg NEGATIVE Urine Barbiturates Screen Neg NEGATIVE Urine Phencyclidine Screen Neg NEGATIVE Urine Amphetamines Screen Neg NEGATIVE Urine Benzodiazepines Screen Neg NEGATIVE Urine Cocaine Screen Neg NEGATIVE Urine Cannabinoids Screen Neg NEGATIVE Triglycerides Level 194 H < 150 mg/dL Cholesterol Level 171 < 200 mg/dL LDL Cholesterol 41 < 100 mg/dL HDL Cholesterol 92 H 40-59 mg/dL Test 08/29/24 13:14 Range/Units D-Dimer, Quantitative 0.44 0.0-0.49 mg/L FEU Hemoglobin A1c 5.1 <5.7 % A1C Assessment Chest pain, rule out coronary ischemia. Hypertension. Dyslipidemia. History of pulmonary embolism (on Eliquis). Pulmonary hypertension. History of alcohol abuse. History of tobacco use. Morbidly obese. Plan/Recommendation I agree with your ongoing assessment and care of plan. Patient has been seen by Alice Robles NP on my behalf, her and I discussed the plan with the patient. Given the patient's clinical presentation, comorbidities, and elevated HEART score, the patient was offered a nuclear stress test. Patient is agreeable. We will schedule the patient to undergo stress test on 09/01/2024. In the meantime, continue with medical management. Transthoracic echocardiogram reveals an EF of 65%, RVSP 40 mmHg. Chest pain protocol. HEART score: 4 points. JUANPABLO score: 2 points. Blood pressure control. Close Cardiac surveillance. Additional plan as per the hospital course. Plan discussed with: Patient NYHA Physical activity limitations: NA Date of Service: Aug 31, 2024 Billing Provider: JERRELL OVALLE MD Cardiology Common Codes: [id number] INP/OBS CARE (High) Cardiology Consultation Codes: [id number] CONSULT <45MIN JERRELL OVALLE MD Aug 31, 2024 17:35
[2024-09-01] VITALS (16 sets, daily range): BP systolic 139–156; BP diastolic 73–85; PULSE 66–101; RESP 15–18; TEMP 97.6–97.9; O2SAT 97–100
[2024-09-01 06:40] LABS: Basophils # (auto) 0 10 ^3/uL (0-0.2); Basophils % (auto) 0.6 % (0.0-2.0); Eosinophils # (auto) 0.2 10 ^3/uL (0-0.8); Eosinophils % (auto) 2.8 % (0.0-7.0); Hematocrit 34.3 % (36.0-46.0); Hemoglobin 11.4 g/dL (12.2-16.2); Lymphocytes # (auto) 2.4 10 ^3/uL (0.4-5.4); Lymphocytes % (auto) 43.4 % (10.0-50.0); Mean Corpuscular Hgb Conc. 33.1 g/dL (32.0-36.0); Mean Corpuscular Volume 87.5 fL (80.0-100.0); Monocytes # (auto) 0.6 10 ^3/uL (0-1.3); Monocytes % (auto) 10.5 % (0.0-12.0); Neutrophils # (auto) 2.4 10 ^3/uL (1.6-8.6); Neutrophils % (auto) 42.7 % (37.0-80.0); Nucleated Red Blood Cells % 0.2 %; Platelet Count (auto) 229 10^3/uL (140-450); Red Blood Cells 3.92 10^6/uL (4.0-5.20); Red Cell Distribution Width 16.2 % (11.8-14.3); White Blood Cell 5.6 10^3/uL (4.4-10.8)
[2024-09-01 06:53] LABS: Chloride 106 mmol/L (98-107); Potassium 3.5 mmol/L (3.5-5.1); Sodium 140 mmol/L (136-145)
[2024-09-01 06:54] LABS: Anion Gap 6 (5-15); Carbon Dioxide 28 mmol/L (20-31)
[2024-09-01 06:58] LABS: Uric Acid 6.3 mg/dL (3.1-7.8)
[2024-09-01 06:59] LABS: BUN/Creatinine Ratio 22.2 (10.0-20.0); Blood Urea Nitrogen 14 mg/dL (9-23); Glucose 88 mg/dL (74-106)
[2024-09-01 07:01] LABS: Phosphorus 2.8 mg/dL (2.4-5.1)
[2024-09-01 07:08] LABS: Calcium 8.6 mg/dL (8.7-10.4)
[2024-09-01] MEDS: POTASSIUM EFFERVESENT TAB 25 MEQ PO ONE (08:15)
[2024-09-01] MEDS: cefTRIAXone 1GM/50ML D5W 50 ML IV SCH (09:00)
--- NOTE | 2024-09-01 10:35 | DVHPN2 ---
Progress Note Date Seen: Sep 01, 2024 Medical Necessity Reason Pt with a Central, PICC or Fol: No Objective vital signs Vital Sign Date Time Temp Pulse Resp B/P (MAP) Pulse Ox O2 Delivery O2 Flow Rate FiO2 09/01/24 09:10 97 Nasal Cannula* 3 32 09/01/24 08:46 97.7 87 18 139/77 (97) 97.7 Total Intake and Output 08/31/24 08/31/24 09/01/24 15:00 23:00 07:00 Intake Total 50 ml 900 ml 800 ml Output Total 400 ml Balance 50 ml 500 ml 800 ml medications Current Medications Medications Dose Ordered Sig/Latha Route Start Time Stop Time Status Last Admin Dose Admin Acetaminophen 650 mg Q6HP PRN PO 08/29/24 22:30 Acetaminophen/ Hydrocodone Bitart 1 tab Q4HP PRN PO 08/29/24 22:30 08/30/24 03:59 1 TAB Pregabalin 100 mg TID PO 08/30/24 06:00 09/01/24 05:53 100 MG Levothyroxine Sodium 50 mcg QAM@0600 PO 08/31/24 06:00 09/01/24 05:53 50 MCG Oxycodone/ Acetaminophen 1 tab TID PO 08/30/24 22:00 09/01/24 05:53 1 TAB Apixaban 5 mg BID PO 08/31/24 10:00 09/01/24 09:00 5 MG Ceftriaxone Sodium 50 ml @ 100 mls/hr DAILY@09 IV 09/01/24 09:00 09/01/24 09:00 100 MLS/HR Albuterol 2.5 mg Q4HR NEB 08/31/24 14:00 09/01/24 06:23 2.5 MG Ipratropium [place] 0.5 mg Q4HR NEB 08/31/24 14:00 09/01/24 06:23 0.5 MG Examination: GENERAL:Normal, LUNGS:Abnormal, ABDOMEN:Normal laboratory and microbiology Laboratory Tests 09/01/24 05:27 Test 09/01/24 05:27 Range/Units Serum Glucose 88 74-106 mg/dL Microbiology Date/Time Source Procedure Growth Status 08/31/24 15:15 Voided Urine Urine Culture - Preliminary Resulted Problem List/Assessment/Plan Problem List/Assessment/Plan 58-year-old female past medical history of pulmonary embolism, congestive heart failure and hypertension presents to the hospital complaining of shortness of breath patient was admitted for fluid overload. Acute kidney injury prerenal setting of fluid overload No previous history of CKD Pulmonary hypertension Diastolic heart failure , RV failure Pulmonary embolism with IVC filter start po diuretics, can start with K sparing if needed replace potassium daily avoid hypokalemia avoid hypotension Desire has resolved Plan discussed with: Patient RIVAS JOHNSON MD Sep 01, 2024 10:35
--- NOTE | 2024-09-01 15:11 | ECG ---
[facility] Test Date: 2024-08-31 Test Time: 11:11:56 Pat Name: SHAAN MESSER Department: Room: 0287T A Gender: F [employer]: [employer] : 1965 Requested By: CHANDNI CORTES Order Number: [id number] Reading MD: Sony Wan Measurements Intervals [place] Rate: 89 P: 74 SC: 135 QRS: 0 QRSD: 108 T: -28 QT: 398 QTc: 485 Interpretive Statements Sinus rhythm Low voltage, precordial leads Borderline T abnormalities, diffuse leads Borderline prolonged QT interval Electronically Signed On 09-03-2024 20:17:53 PDT by Sony Wan Please click the below link to view image of tracing.
[2024-09-01] MEDS: FUROSEMIDE 20 MG/2 ML VIAL IV SCH (18:00)
--- NOTE | 2024-09-01 18:03 | DVHPNRES ---
Progress Note Date Seen: Sep 01, 2024 Resident Creating Document: MARY MANCIA RESIDENT Medical Necessity Reason Pt with a Central, PICC or Fol: No Subjective Review of Systems This is a 58-year-old female with past medical history of hypertension, neuropathy, degenerative disc disease, dyslipidemia, hypothyroidism, osteoarthritis, history of IVC filter placed in 2018 unable to be removed, pulmonary embolism in 2018 and has been on 4L of O2 at home through Nasal cannula, presented to the ED with chief complaint of acute shortness of breath and generalized body cramps. Patient states that shortness of breaths started yesterday and progressively got worse today without cough or sputum production. Patient also reported mild intermittent chest pain and states that has not been able to walk with her cane as normally due to the generalized muscle cramps. The patient denied fever/chills, or any other associated symptoms. On admission, patient was placed on 4 L of oxygen through nasal cannula, initial labs showed normal CBC and BNP with negative troponins. D-dimer was normal range, chest x-ray was grossly clear without evidence of clear consolidations. We will admit the patient for further assessment and management. Past medical history: hypertension, neuropathy, degenerative disc disease, dyslipidemia, hypothyroidism, osteoarthritis, history of IVC filter placed in 2018 unable to be removed, pulmonary embolism in 2018 and has been on 4L of O2 at home through Nasal cannula. The patient stated that in 2018 before doing bariatric surgery they placed an inferior vena cava filter prophylactically and after the surgery she developed pulmonary embolism. Later on they were not able to remove the IVC filter due to "perforation". Home medications: Lisinopril, hydrochlorothiazide, metoprolol, Lyrica, Percocet, Eliquis 5 mg b.i.d. (patient does not remember the dose of the medications). Surgical history: Bariatric surgery in 2018 Social history: Reports chronic alcohol use but stopped this time, quit smoking long time ago and denies drugs intake. 08/31-Patient seen and examined at bedside. Reports chest pain, left-sided, pressure type in nature exacerbates on exertion and comes on rest . EKG repeated, nonspecific T-wave changes, troponin repeated increased to 60 09/01-patient seen and examined. Pending stress test. Objective vital signs Vital Sign Date Time Temp Pulse Resp B/P (MAP) Pulse Ox O2 Delivery O2 Flow Rate FiO2 09/01/24 17:07 97.8 89 18 156/73 (100) 99 97.8 09/01/24 13:26 Nasal Cannula 3.0 09/01/24 13:26 32 Total Intake and Output 08/31/24 08/31/24 09/01/24 15:00 23:00 07:00 Intake Total 50 ml 900 ml 800 ml Output Total 400 ml Balance 50 ml 500 ml 800 ml medications Current Medications Medications Dose Ordered Sig/Latha Route Start Time Stop Time Status Last Admin Dose Admin Acetaminophen 650 mg Q6HP PRN PO 08/29/24 22:30 Acetaminophen/ Hydrocodone Bitart 1 tab Q4HP PRN PO 08/29/24 22:30 08/30/24 03:59 1 TAB Pregabalin 100 mg TID PO 08/30/24 06:00 09/01/24 14:09 100 MG Levothyroxine Sodium 50 mcg QAM@0600 PO 08/31/24 06:00 09/01/24 05:53 50 MCG Oxycodone/ Acetaminophen 1 tab TID PO 08/30/24 22:00 09/01/24 14:09 1 TAB Apixaban 5 mg BID PO 08/31/24 10:00 09/01/24 09:00 5 MG Ceftriaxone Sodium 50 ml @ 100 mls/hr DAILY@09 IV 09/01/24 09:00 09/01/24 09:00 100 MLS/HR Albuterol 2.5 mg Q4HR NEB 08/31/24 14:00 09/01/24 06:23 2.5 MG Ipratropium [place] 0.5 mg Q4HR NEB 08/31/24 14:00 09/01/24 06:23 0.5 MG Oxycodone/ Acetaminophen 2 tab TID PO 09/01/24 22:00 UNV Examination Morbidly obese patient lying in the bed, no acute distress General: Morbidly obese, afebrile, palor, mucosae are moist Cardiovascular: Regular S1 and S2. No murmurs, gallops or rubs. No JVD elevation. No pedal edema Respiratory: Decreased bilateral breath sounds heard on auscultation, no crackles or wheezing heard. Abdomen: Soft, nontender, nondistended, normoactive bowel sounds, no rebound tenderness, no organomegaly, no masses Genitourinary: Deferred MSK/skin: Mobilizes 4 limbs. Skin is dry and warm Neurological: No motor, no sensitive deficits, normal speech. Pupils are isocoric and reactive. Psych/Mental Status: A/Ox3 laboratory and microbiology Laboratory Tests 09/01/24 05:27 Test 09/01/24 05:27 Range/Units Serum Glucose 88 74-106 mg/dL Microbiology Date/Time Source Procedure Growth Status 08/31/24 15:15 Voided Urine Urine Culture - Preliminary Resulted 08/31/24 10:00 Nose MRSA Screen - Final Complete Labs and/or images reviewed: Labs reviewed by me, Image(s) reviewed by me Problem List/Assessment/Plan Problem List/Assessment/Plan Acute hypoxic respiratory failure, ruled out pulmonary embolism Acute generalized body aches likely due to dehydration/electrolytes abnormalities Chronic respiratory failure-3 L home oxygen History of pulmonary embolism and IVC filter placed in 2018 -nebulized treatments q.4 scheduled, CPAP at nighttime -wean off oxygen -CT chest shows no consolidation -Eliquis 5 mg b.i.d. Acute chest pain, rule out ACS Essential hypertension Rule out systolic/diastolic heart failure -echocardiogram shows mild LVH, mild LV diastolic dysfunction. LVEF 65%. Moderate dilation RA, RV, chronic RV strain. Mild pulmonary hypertension, RVSP 40 -troponin 6, 6, 63 -BNP 42 -cardiology consulted-stress test 09/01 - Lasix 20 mg IV b.i.d. starting 09/01 Acute complicated cystitis with right hydronephrosis Rhabdomyolysis secondary to possible hypothyroidism YONG secondary to possible rhabdomyolysis Hypokalemia -IV NS 150 cc/hour -bladder scan -nephrology consulted - creatinine 0.97 from 2.12 -CK 1500, downtrended to 746 -Kidney ultrasound shows right kidney hydronephrosis -IV ceftriaxone 1 g Transaminitis Liver ultrasound shows no evidence of right upper quadrant abnormalities. Hepatomegaly. Mild right hydronephrosis. Hypothyroidism Levothyroxine 50 mcg daily Dyslipidemia Could not started atorvastatin given transaminitis Counseled regarding lifestyle measures History of Nadree-en-Y bypass Iron WNL, B12 supplemented, folate levels WNL PT eval requested Goals of care discussed with the patient at bedside for >35min, FULL CODE Plan discussed with Dr. Mustafa Plan discussed with: Patient My Orders My Orders Orders - MARY MANCIA RESIDENT Procedure Category Date Status Time Oxycodone W/ Acet PHA 09/01/24 Logged 5/325mg Tab (Percocet 22:00 Date of Service: Sep 01, 2024 Billing Provider: TIKA MUSTAFA MD Common Visit Codes: [id number] INP/OBS CARE(HIGH) MARY MANCIA RESIDENT Sep 01, 2024 18:03 TIKA MUSTAFA MD Sep 01, 2024 22:57
[2024-09-01] MEDS: CYANOCOBALAMIN (B-12) 1000 MCG/1 ML VIAL IM ONE (18:30)
[2024-09-01] MEDS: OXYCODONE W/ ACETAMINOPHEN 5/325MG TABLET PO SCH (22:10)
[2024-09-02] VITALS (14 sets, daily range): BP systolic 124–152; BP diastolic 68–92; PULSE 69–94; RESP 14–19; TEMP 97.5–98.4; O2SAT 97–100
--- NOTE | 2024-09-02 00:02 | DVHPN2 ---
Progress Note - Dictate Date Seen: Sep 01, 2024 Medical Necessity Reason Pt with a Central, PICC or Fol: No Subjective Patient was seen and evaluated in follow up. No overnight events. Patient scheduled for stress test. Transthoracic echocardiogram reveals an EF of 65%, RVSP 40 mmHg. Liver US shows hepatomegaly and mild right hydronephrosis. Head Sulfide Operator kinase 438. Telemetry reviewed. vital signs Vital Sign Date Time Temp Pulse Resp B/P (MAP) Pulse Ox O2 Delivery O2 Flow Rate FiO2 09/01/24 22:50 84 18 100 09/01/24 22:44 Nasal Cannula 2.0 09/01/24 22:44 28 09/01/24 21:00 97.6 149/85 (106) 97.6 Total Intake and Output 08/31/24 08/31/24 09/01/24 15:00 23:00 07:00 Intake Total 50 ml 900 ml 800 ml Output Total 400 ml Balance 50 ml 500 ml 800 ml medications Current Medications Medications Dose Ordered Sig/Latha Route Start Time Stop Time Status Last Admin Dose Admin Acetaminophen 650 mg Q6HP PRN PO 08/29/24 22:30 Acetaminophen/ Hydrocodone Bitart 1 tab Q4HP PRN PO 08/29/24 22:30 08/30/24 03:59 1 TAB Pregabalin 100 mg TID PO 08/30/24 06:00 09/01/24 22:08 100 MG Levothyroxine Sodium 50 mcg QAM@0600 PO 08/31/24 06:00 09/01/24 05:53 50 MCG Apixaban 5 mg BID PO 08/31/24 10:00 09/01/24 22:09 5 MG Ceftriaxone Sodium 50 ml @ 100 mls/hr DAILY@09 IV 09/01/24 09:00 09/01/24 09:00 100 MLS/HR Albuterol 2.5 mg Q4HR NEB 08/31/24 14:00 09/01/24 22:44 2.5 MG Ipratropium [place] 0.5 mg Q4HR NEB 08/31/24 14:00 09/01/24 22:44 0.5 MG Oxycodone/ Acetaminophen 2 tab TID PO 09/01/24 22:00 09/01/24 22:10 2 TAB Furosemide 20 mg BIDD IV 09/01/24 18:00 objective GENERAL: Alert and oriented x 3. No acute distress. Morbidly obese. EYES: PERRL, EOMI. Anicteric. HENT: Moist mucous membranes. LUNGS: Clear to auscultation bilaterally. CARDIOVASCULAR: Regular rate and rhythm. ABDOMEN: Soft, nontender and nondistended. EXTREMITIES: No edema. NEUROLOGIC: No focal neurological deficits. SKIN: Warm, dry. laboratory and microbiology Laboratory Tests 09/01/24 05:27 Test 09/01/24 05:27 Range/Units Serum Glucose 88 74-106 mg/dL Problem List Chest pain, rule out coronary ischemia. Hypertension. Dyslipidemia. History of pulmonary embolism (on Eliquis). Pulmonary hypertension. History of alcohol abuse. History of tobacco use. Morbidly obese. Assessment/Plan Continued all current supportive medical care. Stress test. Oxycodone and [place] for pain. Eliquis. IV antibiotics as ordered. Diuretics with Lasix. Additional plan as per the hospital course. Plan discussed with: Patient JERRELL OVALLE MD Sep 02, 2024 00:02
[2024-09-02 06:28] LABS: Anion Gap 9 (5-15); Basophils # (auto) 0 10 ^3/uL (0-0.2); Basophils % (auto) 0.6 % (0.0-2.0); Carbon Dioxide 26 mmol/L (20-31); Chloride 106 mmol/L (98-107); Eosinophils # (auto) 0.2 10 ^3/uL (0-0.8); Eosinophils % (auto) 3.3 % (0.0-7.0); Hematocrit 35.1 % (36.0-46.0); Hemoglobin 11.4 g/dL (12.2-16.2); Lymphocytes # (auto) 2.1 10 ^3/uL (0.4-5.4); Lymphocytes % (auto) 39.4 % (10.0-50.0); Mean Corpuscular Hemoglobin 29.1 pg (28.0-32.0); Mean Corpuscular Hgb Conc. 32.6 g/dL (32.0-36.0); Mean Corpuscular Volume 89.4 fL (80.0-100.0); Monocytes # (auto) 0.6 10 ^3/uL (0-1.3); Monocytes % (auto) 10.8 % (0.0-12.0); Neutrophils # (auto) 2.5 10 ^3/uL (1.6-8.6); Neutrophils % (auto) 45.9 % (37.0-80.0); Platelet Count (auto) 226 10^3/uL (140-450); Potassium 3.7 mmol/L (3.5-5.1); Red Blood Cells 3.92 10^6/uL (4.0-5.20); Red Cell Distribution Width 16.3 % (11.8-14.3); Sodium 141 mmol/L (136-145); White Blood Cell 5.4 10^3/uL (4.4-10.8)
[2024-09-02 06:29] LABS: Calcium 8.8 mg/dL (8.7-10.4)
[2024-09-02 06:34] LABS: BUN/Creatinine Ratio 20.7 (10.0-20.0); Blood Urea Nitrogen 12 mg/dL (9-23); Glucose 91 mg/dL (74-106); Magnesium 1.9 mg/dL (1.6-2.6)
[2024-09-02] MEDS: REGADENOSON 0.4 MG/5 ML SYRG IV ONE ×2 (09:13→09:20)
--- NOTE | 2024-09-02 09:21 | DVHPN2 ---
Progress Note Date Seen: Sep 02, 2024 Medical Necessity Reason Pt with a Central, PICC or Fol: No Objective vital signs Vital Sign Date Time Temp Pulse Resp B/P (MAP) Pulse Ox O2 Delivery O2 Flow Rate FiO2 09/02/24 09:01 97.5 83 19 152/92 (112) 99 97.5 09/02/24 05:53 Nasal Cannula* 3 32 Total Intake and Output 09/01/24 09/01/24 09/02/24 15:00 23:00 07:00 Intake Total 50 ml 0 ml 500 ml Output Total 800 ml 450 ml Balance 50 ml -800 ml 50 ml medications Current Medications Medications Dose Ordered Sig/Latha Route Start Time Stop Time Status Last Admin Dose Admin Acetaminophen 650 mg Q6HP PRN PO 08/29/24 22:30 Acetaminophen/ Hydrocodone Bitart 1 tab Q4HP PRN PO 08/29/24 22:30 08/30/24 03:59 1 TAB Pregabalin 100 mg TID PO 08/30/24 06:00 09/02/24 05:03 100 MG Levothyroxine Sodium 50 mcg QAM@0600 PO 08/31/24 06:00 09/02/24 05:04 50 MCG Apixaban 5 mg BID PO 08/31/24 10:00 09/01/24 22:09 5 MG Ceftriaxone Sodium 50 ml @ 100 mls/hr DAILY@09 IV 09/01/24 09:00 09/01/24 09:00 100 MLS/HR Albuterol 2.5 mg Q4HR NEB 08/31/24 14:00 09/02/24 05:53 2.5 MG Ipratropium [place] 0.5 mg Q4HR NEB 08/31/24 14:00 09/02/24 05:53 0.5 MG Oxycodone/ Acetaminophen 2 tab TID PO 09/01/24 22:00 09/02/24 05:06 2 TAB Furosemide 20 mg BIDD IV 09/01/24 18:00 Examination: GENERAL:Normal, CVS:Normal, ABDOMEN:Normal, SKIN:Normal laboratory and microbiology Laboratory Tests 09/02/24 05:18 Test 09/02/24 05:18 Range/Units Serum Glucose 91 74-106 mg/dL Microbiology Date/Time Source Procedure Growth Status 08/31/24 15:15 Voided Urine Urine Culture - Preliminary Resulted 08/31/24 10:00 Nose MRSA Screen - Final Complete Problem List/Assessment/Plan Problem List/Assessment/Plan 58-year-old female past medical history of pulmonary embolism, congestive heart failure and hypertension presents to the hospital complaining of shortness of breath patient was admitted for fluid overload. Acute kidney injury prerenal setting of fluid overload No previous history of CKD Pulmonary hypertension Diastolic heart failure , RV failure Pulmonary embolism with IVC filter po diuretics replace potassium daily avoid hypokalemia avoid hypotension Desire has resolved, electrolytes wnl Plan discussed with: Patient RIVAS JOHNSON MD Sep 02, 2024 09:21
--- NOTE | 2024-09-02 16:41 | DVHPNRES ---
Progress Note Date Seen: Sep 02, 2024 Resident Creating Document: MARY MANCIA RESIDENT Medical Necessity Reason Pt with a Central, PICC or Fol: No Subjective Review of Systems This is a 58-year-old female with past medical history of hypertension, neuropathy, degenerative disc disease, dyslipidemia, hypothyroidism, osteoarthritis, history of IVC filter placed in 2018 unable to be removed, pulmonary embolism in 2018 and has been on 4L of O2 at home through Nasal cannula, presented to the ED with chief complaint of acute shortness of breath and generalized body cramps. Patient states that shortness of breaths started yesterday and progressively got worse today without cough or sputum production. Patient also reported mild intermittent chest pain and states that has not been able to walk with her cane as normally due to the generalized muscle cramps. The patient denied fever/chills, or any other associated symptoms. On admission, patient was placed on 4 L of oxygen through nasal cannula, initial labs showed normal CBC and BNP with negative troponins. D-dimer was normal range, chest x-ray was grossly clear without evidence of clear consolidations. We will admit the patient for further assessment and management. Past medical history: hypertension, neuropathy, degenerative disc disease, dyslipidemia, hypothyroidism, osteoarthritis, history of IVC filter placed in 2018 unable to be removed, pulmonary embolism in 2018 and has been on 4L of O2 at home through Nasal cannula. The patient stated that in 2018 before doing bariatric surgery they placed an inferior vena cava filter prophylactically and after the surgery she developed pulmonary embolism. Later on they were not able to remove the IVC filter due to "perforation". Home medications: Lisinopril, hydrochlorothiazide, metoprolol, Lyrica, Percocet, Eliquis 5 mg b.i.d. (patient does not remember the dose of the medications). Surgical history: Bariatric surgery in 2018 Social history: Reports chronic alcohol use but stopped this time, quit smoking long time ago and denies drugs intake. 08/31-Patient seen and examined at bedside. Reports chest pain, left-sided, pressure type in nature exacerbates on exertion and comes on rest . EKG repeated, nonspecific T-wave changes, troponin repeated increased to 60 09/01-patient seen and examined. Pending stress test. 09/02-patient seen and examined. Stress test undergoing today. Saturating 95 on 3 L. Objective vital signs Vital Sign Date Time Temp Pulse Resp B/P (MAP) Pulse Ox O2 Delivery O2 Flow Rate FiO2 09/02/24 14:24 71 18 100 09/02/24 14:18 Nasal Cannula* 3 32 09/02/24 13:00 97.9 145/76 (99) 97.9 Total Intake and Output 09/01/24 09/01/24 09/02/24 15:00 23:00 07:00 Intake Total 50 ml 0 ml 500 ml Output Total 800 ml 450 ml Balance 50 ml -800 ml 50 ml medications Current Medications Medications Dose Ordered Sig/Latha Route Start Time Stop Time Status Last Admin Dose Admin Acetaminophen 650 mg Q6HP PRN PO 08/29/24 22:30 Acetaminophen/ Hydrocodone Bitart 1 tab Q4HP PRN PO 08/29/24 22:30 08/30/24 03:59 1 TAB Pregabalin 100 mg TID PO 08/30/24 06:00 09/02/24 14:16 100 MG Levothyroxine Sodium 50 mcg QAM@0600 PO 08/31/24 06:00 09/02/24 05:04 50 MCG Apixaban 5 mg BID PO 08/31/24 10:00 09/02/24 10:49 5 MG Ceftriaxone Sodium 50 ml @ 100 mls/hr DAILY@09 IV 09/01/24 09:00 09/02/24 10:49 100 MLS/HR Albuterol 2.5 mg Q4HR NEB 08/31/24 14:00 09/02/24 14:17 2.5 MG Ipratropium [place] 0.5 mg Q4HR NEB 08/31/24 14:00 09/02/24 14:17 0.5 MG Oxycodone/ Acetaminophen 2 tab TID PO 09/01/24 22:00 09/02/24 14:16 2 TAB Furosemide 20 mg BIDD IV 09/01/24 18:00 Spironolactone 12.5 mg BIDD PO 09/02/24 18:00 Examination Morbidly obese patient lying in the bed, no acute distress General: Morbidly obese, afebrile, palor, mucosae are moist Cardiovascular: Regular S1 and S2. No murmurs, gallops or rubs. No JVD elevation. No pedal edema Respiratory: Decreased bilateral breath sounds heard on auscultation, no crackles or wheezing heard. Abdomen: Soft, nontender, nondistended, normoactive bowel sounds, no rebound tenderness, no organomegaly, no masses Genitourinary: Deferred MSK/skin: Mobilizes 4 limbs. Skin is dry and warm Neurological: No motor, no sensitive deficits, normal speech. Pupils are isocoric and reactive. Psych/Mental Status: A/Ox3 laboratory and microbiology Laboratory Tests 09/02/24 05:18 Test 09/02/24 05:18 Range/Units Serum Glucose 91 74-106 mg/dL Microbiology Date/Time Source Procedure Growth Status 08/31/24 15:15 Voided Urine Urine Culture - Preliminary Resulted 08/31/24 10:00 Nose MRSA Screen - Final Complete Labs and/or images reviewed: Labs reviewed by me, Image(s) reviewed by me Problem List/Assessment/Plan Problem List/Assessment/Plan Acute hypoxic respiratory failure, likely diastolic heart failure. ruled out pulmonary embolism Acute generalized body aches likely due to dehydration/electrolytes abnormalities Chronic respiratory failure-3 L home oxygen History of pulmonary embolism and IVC filter placed in 2018 -nebulized treatments q.4 scheduled, CPAP at nighttime -wean off oxygen -CT chest shows no consolidation -Eliquis 5 mg b.i.d. Acute chest pain, rule out ACS Essential hypertension Rule out systolic/diastolic heart failure -echocardiogram shows mild LVH, mild LV diastolic dysfunction. LVEF 65%. Moderate dilation RA, RV, chronic RV strain. Mild pulmonary hypertension, RVSP 40 -troponin 6, 6, 63 -BNP 42 -cardiology consulted-stress test 09/02 - spironolactone 12.5 mg p.o. b.i.d. starting 09/02, Lasix 20 mg IV b.i.d. starting 09/01 Acute complicated cystitis with right hydronephrosis Rhabdomyolysis secondary to possible hypothyroidism YONG secondary to possible rhabdomyolysis Hypokalemia -IV NS 150 cc/hour -bladder scan -nephrology consulted - creatinine 0.97 from 2.12 -CK 1500, downtrended to 746 -Kidney ultrasound shows right kidney hydronephrosis -IV ceftriaxone 1 g Transaminitis Liver ultrasound shows no evidence of right upper quadrant abnormalities. Hepatomegaly. Mild right hydronephrosis. Hypothyroidism Levothyroxine 50 mcg daily Dyslipidemia Could not started atorvastatin given transaminitis Counseled regarding lifestyle measures History of Andree-en-Y bypass Iron WNL, B12 supplemented, folate levels WNL PT eval requested-recommended front wheel walker Goals of care discussed with the patient at bedside for >35min, FULL CODE Plan discussed with Dr. Mustafa Plan discussed with: Patient My Orders My Orders Orders - MARY MANCIA Procedure Category Date Status Time Oxycodone W/ Acet PHA 09/01/24 In Process 5/325mg Tab (Percocet 22:00 Furosemide Injection PHA 09/01/24 In Process (Lasix Injection) 18:00 Cardiac DIET 09/02/24 Transmitted Diet-2gna,Lofat,Lochol Lunch Date of Service: Sep 02, 2024 Billing Provider: TIKA MUSTAFA MD Common Visit Codes: [id number] INP/OBS CARE(HIGH) MARY MANCIA Sep 02, 2024 16:40 TIKA MUSTAFA MD Sep 02, 2024 21:38
[2024-09-02] MEDS: SPIRONOLACTONE 25 MG TAB PO SCH (18:05)
--- NOTE | 2024-09-02 22:19 | DVHPN2 ---
Progress Note - Dictate Date Seen: Sep 02, 2024 Medical Necessity Reason Pt with a Central, PICC or Fol: No Subjective Patient was seen and evaluated in follow up. Patient is on 3 LPM NC. Patient underwent stress test, results are pending. Telemetry reviewed. vital signs Vital Sign Date Time Temp Pulse Resp B/P (MAP) Pulse Ox O2 Delivery O2 Flow Rate FiO2 09/02/24 22:00 100 Nasal Cannula* 3 32 09/02/24 19:40 19 09/02/24 18:04 139/73 09/02/24 17:07 98.1 69 98.1 Total Intake and Output 09/01/24 09/01/24 09/02/24 15:00 23:00 07:00 Intake Total 50 ml 0 ml 500 ml Output Total 800 ml 450 ml Balance 50 ml -800 ml 50 ml medications Current Medications Medications Dose Ordered Sig/Latha Route Start Time Stop Time Status Last Admin Dose Admin Acetaminophen 650 mg Q6HP PRN PO 08/29/24 22:30 Acetaminophen/ Hydrocodone Bitart 1 tab Q4HP PRN PO 08/29/24 22:30 08/30/24 03:59 1 TAB Pregabalin 100 mg TID PO 08/30/24 06:00 09/02/24 14:16 100 MG Levothyroxine Sodium 50 mcg QAM@0600 PO 08/31/24 06:00 09/02/24 05:04 50 MCG Apixaban 5 mg BID PO 08/31/24 10:00 09/02/24 10:49 5 MG Ceftriaxone Sodium 50 ml @ 100 mls/hr DAILY@09 IV 09/01/24 09:00 09/02/24 10:49 100 MLS/HR Albuterol 2.5 mg Q4HR NEB 08/31/24 14:00 09/02/24 14:17 2.5 MG Ipratropium [place] 0.5 mg Q4HR NEB 08/31/24 14:00 09/02/24 14:17 0.5 MG Oxycodone/ Acetaminophen 2 tab TID PO 09/01/24 22:00 09/02/24 14:16 2 TAB Furosemide 20 mg BIDD IV 09/01/24 18:00 09/02/24 18:04 20 MG Spironolactone 12.5 mg BIDD PO 09/02/24 18:00 09/02/24 18:05 12.5 MG objective GENERAL: Alert and oriented x 3. No acute distress. Morbidly obese. EYES: PERRL, EOMI. Anicteric. HENT: Moist mucous membranes. LUNGS: Clear to auscultation bilaterally. CARDIOVASCULAR: Regular rate and rhythm. ABDOMEN: Soft, nontender and nondistended. EXTREMITIES: No edema. NEUROLOGIC: No focal neurological deficits. SKIN: Warm, dry. laboratory and microbiology Laboratory Tests 09/02/24 05:18 Test 09/02/24 05:18 Range/Units Serum Glucose 91 74-106 mg/dL Problem List Chest pain, rule out coronary ischemia. Hypertension. Dyslipidemia. History of pulmonary embolism (on Eliquis). Pulmonary hypertension. History of alcohol abuse. History of tobacco use. Morbidly obese. Assessment/Plan Continued all current supportive medical care. Stress test. Oxycodone and [place] for pain. Eliquis. IV antibiotics as ordered. Diuretics with Lasix. Additional plan as per the hospital course. Plan discussed with: Patient JERRELL OVALLE MD Sep 02, 2024 22:19
[2024-09-03] VITALS (10 sets, daily range): BP systolic 120–131; BP diastolic 60–78; PULSE 68–79; RESP 16–18; TEMP 36.4; O2SAT 95–100
[2024-09-03 07:03] LABS: Calcium 9.3 mg/dL (8.7-10.4); Chloride 104 mmol/L (98-107); Sodium 139 mmol/L (136-145)
[2024-09-03 07:04] LABS: Anion Gap 7 (5-15); Carbon Dioxide 28 mmol/L (20-31); Potassium 3.4 mmol/L (3.5-5.1)
[2024-09-03 07:09] LABS: BUN/Creatinine Ratio 14.3 (10.0-20.0); Blood Urea Nitrogen 9 mg/dL (9-23); Glucose 101 mg/dL (74-106)
[2024-09-03] MEDS: POTASSIUM CHL 20 Meq TABLET PO ONE (11:30)
--- NOTE | 2024-09-03 14:57 | DVHPN2 ---
Progress Note - Dictate Date Seen: Sep 03, 2024 Medical Necessity Reason Pt with a Central, PICC or Fol: No Subjective Patient was seen and evaluated in follow up. Patient is on 3 LPM NC. Patient is complaining of body aches. K 3.4, potassium was replaced. Telemetry reviewed. vital signs Vital Sign Date Time Temp Pulse Resp B/P (MAP) Pulse Ox O2 Delivery O2 Flow Rate FiO2 09/03/24 13:00 97.5 78 16 125/67 (86) 98 97.5 09/03/24 08:00 Nasal Cannula* 3 32 Total Intake and Output 09/02/24 09/02/24 09/03/24 15:00 23:00 07:00 Intake Total 50 ml 600 ml 775 ml Output Total 700 ml 900 ml Balance 50 ml -100 ml -125 ml medications Current Medications Medications Dose Ordered Sig/Latha Route Start Time Stop Time Status Last Admin Dose Admin Acetaminophen 650 mg Q6HP PRN PO 08/29/24 22:30 Acetaminophen/ Hydrocodone Bitart 1 tab Q4HP PRN PO 08/29/24 22:30 08/30/24 03:59 1 TAB Pregabalin 100 mg TID PO 08/30/24 06:00 09/03/24 06:26 100 MG Levothyroxine Sodium 50 mcg QAM@0600 PO 08/31/24 06:00 09/03/24 06:25 50 MCG Apixaban 5 mg BID PO 08/31/24 10:00 09/03/24 10:10 5 MG Ceftriaxone Sodium 50 ml @ 100 mls/hr DAILY@09 IV 09/01/24 09:00 09/03/24 10:09 100 MLS/HR Albuterol 2.5 mg Q4HR NEB 08/31/24 14:00 09/03/24 07:19 2.5 MG Ipratropium [place] 0.5 mg Q4HR NEB 08/31/24 14:00 09/03/24 07:19 0.5 MG Oxycodone/ Acetaminophen 2 tab TID PO 09/01/24 22:00 09/03/24 10:09 2 TAB Furosemide 20 mg BIDD IV 09/01/24 18:00 09/03/24 10:10 20 MG Spironolactone 12.5 mg BIDD PO 09/02/24 18:00 09/03/24 06:21 12.5 MG objective GENERAL: Alert and oriented x 3. No acute distress. Morbidly obese. EYES: PERRL, EOMI. Anicteric. HENT: Moist mucous membranes. LUNGS: Clear to auscultation bilaterally. CARDIOVASCULAR: Regular rate and rhythm. ABDOMEN: Soft, nontender and nondistended. EXTREMITIES: No edema. NEUROLOGIC: No focal neurological deficits. SKIN: Warm, dry. laboratory and microbiology Laboratory Tests 09/03/24 06:21 09/02/24 05:18 Test 09/03/24 06:21 Range/Units Serum Glucose 101 74-106 mg/dL Problem List Chest pain, rule out coronary ischemia. Hypertension. Dyslipidemia. History of pulmonary embolism (on Eliquis). Pulmonary hypertension. History of alcohol abuse. History of tobacco use. Morbidly obese. Assessment/Plan Continued all current supportive medical care. Stress test. Oxycodone and [place] for pain. Eliquis. IV antibiotics as ordered. Diuretics with Lasix. Additional plan as per the hospital course. Plan discussed with: Patient JERRELL OVALLE MD Sep 03, 2024 13:43
[2024-09-03] MEDS ORDERED: SPIR25TA PO (15:39)
--- NOTE | 2024-09-03 15:42 | DVHDSRES ---
Discharge Summary Date of Admission Resident Creating Document: MARY MANCIA RESIDENT Aug 29, 2024 at 22:28 Date of Discharge: Sep 03, 2024 Labs/Diagnostic Data: Laboratory Results Test 09/03/24 06:21 09/02/24 05:18 09/01/24 05:27 08/31/24 15:15 Sodium Level 139 mmol/L (136-145) Potassium Level 3.4 mmol/L (3.5-5.1) Chloride Level 104 mmol/L (98-107) Carbon Dioxide Level 28 mmol/L (20-31) Anion Gap 7 (5-15) Blood Urea Nitrogen 9 mg/dL (9-23) Creatinine 0.63 mg/dL (0.550-1.02) Glomerular Filtration Rate Calc 103 mL/min (>90) BUN/Creatinine Ratio 14.3 (10.0-20.0) Serum Glucose 101 mg/dL (74-106) Calcium Level 9.3 mg/dL (8.7-10.4) White Blood Count 5.4 10^3/uL (4.4-10.8) Red Blood Count 3.92 10^6/uL (4.0-5.20) Hemoglobin 11.4 g/dL (12.2-16.2) Hematocrit 35.1 % (36.0-46.0) Mean Corpuscular Volume 89.4 fL (80.0-100.0) Mean Corpuscular Hemoglobin 29.1 pg (28.0-32.0) Mean Corpuscular Hemoglobin Concent 32.6 g/dL (32.0-36.0) Red Cell Distribution Width 16.3 % (11.8-14.3) Platelet Count 226 10^3/uL (140-450) Mean Platelet Volume 8.0 fL (6.9-10.8) Neutrophils (%) (Auto) 45.9 % (37.0-80.0) Lymphocytes (%) (Auto) 39.4 % (10.0-50.0) Monocytes (%) (Auto) 10.8 % (0.0-12.0) Eosinophils (%) (Auto) 3.3 % (0.0-7.0) Basophils (%) (Auto) 0.6 % (0.0-2.0) Neutrophils # (Auto) 2.5 10 ^3/uL (1.6-8.6) Lymphocytes # (Auto) 2.1 10 ^3/uL (0.4-5.4) Monocytes # (Auto) 0.6 10 ^3/uL (0-1.3) Eosinophils # (Auto) 0.2 10 ^3/uL (0-0.8) Basophils # (Auto) 0 10 ^3/uL (0-0.2) Nucleated Red Blood Cells 0.0 % Magnesium Level 1.9 mg/dL (1.6-2.6) Uric Acid 6.3 mg/dL (3.1-7.8) Phosphorus Level 2.8 mg/dL (2.4-5.1) Creatine Kinase 438 U/L (34-145) Folic Acid 21.42 ng/mL (>5.38) Thyroid Stimulating Hormone (TSH) 1.85 uIU/mL (0.55-4.78) Urine Creatinine 82.25 mg/dL (30.0-125.0) Urine Sodium 16 mmol/L (40-220) Urine Total Protein 11.1 mg/dL (1-14) Test 08/31/24 05:15 08/30/24 14:06 08/30/24 05:52 08/30/24 04:30 Iron Level 127 ug/dL (50-170) Total Bilirubin 1.5 mg/dL (0.2-1.0) Aspartate Amino Transferase (AST) 76 U/L (13-40) Alanine Aminotransferase (ALT) 63 U/L (7-40) Alkaline Phosphatase 222 U/L (46-116) Troponin I High Sensitivity 63 ng/L (</=34) Total Protein 5.9 g/dL (5.7-8.2) Albumin 3.5 g/dL (3.2-4.8) Vitamin B12 Level 281 pg/mL (211-911) Vitamin D 25-Hydroxy 19.9 ng/mL (30.0-100) Beta HCG, Quantitative 3.2 mIU/mL (1.5-4.2) Erythrocyte Sedimentation Rate 5 mm/hr (0-20) C-Reactive Protein High Sensitivity 2.19 mg/dL (<1.0) Free Thyroxine (T4) Calculated 1.54 ng/dL (0.89-1.76) Influenza Type A Antigen Negative (Negative) Influenza Type B Antigen Negative (Negative) SARS-CoV-2 Antigen (Rapid) Negative (NEGATIVE) Test 08/29/24 21:16 08/29/24 20:20 08/29/24 14:24 08/29/24 13:14 B-Type Natriuretic Peptide 42.66 pg/mL (0-100) Urine Color Light-orange (Yellow) Urine Clarity Turbid (Clear) Urine pH 6.0 (5.0-9.0) Urine Specific [place] 1.026 (1.001-1.035) Urine Protein 1+ (Negative) Urine Ketones Trace (Negative) Urine Blood Negative /uL (Negative) Urine Nitrite Negative (Negative) Urine Bilirubin Negative (Negative) Urine Urobilinogen 2 mg/dL (Negative) Urine Leukocyte Esterase 2+ /uL (Negative) Urine RBC 4 /hpf (0 - 4) Urine Microscopic WBC 48 /HPF (0-5) Urine Squamous Epithelial Cells Few /hpf (<5) Urine Bacteria None seen /hpf (None Seen) Urine Hyaline Casts Few /lpf (0 - 2) Urine Mucus Few (None Seen) Urine Glucose Normal mg/dL (Normal) Urine Opiates Screen Neg (NEGATIVE) Urine Fentanyl Screen Neg (NEGATIVE) Urine Barbiturates Screen Neg (NEGATIVE) Urine Phencyclidine Screen Neg (NEGATIVE) Urine Amphetamines Screen Neg (NEGATIVE) Urine Benzodiazepines Screen Neg (NEGATIVE) Urine Cocaine Screen Neg (NEGATIVE) Urine Cannabinoids Screen Neg (NEGATIVE) Triglycerides Level 194 mg/dL (< 150) Cholesterol Level 171 mg/dL (< 200) LDL Cholesterol 41 mg/dL (< 100) HDL Cholesterol 92 mg/dL (40-59) D-Dimer, Quantitative 0.44 mg/L FEU (0.0-0.49) Hemoglobin A1c 5.1 % A1C (<5.7) Other Laboratory Tests 09/03/24 06:21 09/02/24 05:18 Brief Hx & Hospital Course: This is a 58-year-old female with past medical history of hypertension, neuropathy, degenerative disc disease, dyslipidemia, hypothyroidism, osteoarthritis, history of IVC filter placed in 2018 unable to be removed, pulmonary embolism in 2018 and has been on 4L of O2 at home through Nasal cannula, presented to the ED with chief complaint of acute shortness of breath and generalized body cramps. Patient states that shortness of breaths started yesterday and progressively got worse today without cough or sputum production. Patient also reported mild intermittent chest pain and states that has not been able to walk with her cane as normally due to the generalized muscle cramps. The patient denied fever/chills, or any other associated symptoms. On admission, patient was placed on 4 L of oxygen through nasal cannula, initial labs showed normal CBC and BNP with negative troponins. D-dimer was normal range, chest x-ray was grossly clear without evidence of clear consolidations. We will admit the patient for further assessment and management. Past medical history: hypertension, neuropathy, degenerative disc disease, dyslipidemia, hypothyroidism, osteoarthritis, history of IVC filter placed in 2018 unable to be removed, pulmonary embolism in 2018 and has been on 4L of O2 at home through Nasal cannula. The patient stated that in 2018 before doing bariatric surgery they placed an inferior vena cava filter prophylactically and after the surgery she developed pulmonary embolism. Later on they were not able to remove the IVC filter due to "perforation". Home medications: Lisinopril, hydrochlorothiazide, metoprolol, Lyrica, Percocet, Eliquis 5 mg b.i.d. (patient does not remember the dose of the medications). Surgical history: Bariatric surgery in 2018 Social history: Reports chronic alcohol use but stopped this time, quit smoking long time ago and denies drugs intake. During the hospitalization, CK was elevated at 1500, patient was started on IV fluids. UA showed signs of cystitis, patient was started on IV ceftriaxone. Kidney ultrasound shows hydronephrosis of the right kidney. CT abdomen showed Prior Andree-en-Y gastric bypass surgery. No bowel obstruction, fluid collection, or free air. And mild hepatomegaly. Patient reported chest pain, troponin increased from 6-63, EKG had nonspecific T-wave changes. BNP 42. Cardiology was consulted, patient underwent stress testing 09/02 which preliminary did not show ischemic changes. Report is pending by armoring machine operator. echocardiogram shows mild LVH, mild LV diastolic dysfunction. LVEF 65%. Moderate dilation RA, RV, chronic RV strain. Mild pulmonary hypertension, RVSP 40. We started spironolactone 12.5 mg p.o. b.i.d. starting 09/02, Lasix 20 mg IV b.i.d. starting 09/01. Eliquis was continued during the hospital stay. Prelim urine Culture showed colonization. Patient received iv fluids on arrival given cystitis and rhabdomyolysis and CK started to trend down. 09/03-patient is clinically stable, hemodynamically stable therefore she has been discharged home with the recommendations to follow up with primary care physician, armoring machine operator, [place] clinic as outpatient within 7-14 days. Continue Eliquis and resume home medications. Discharge medication initiated spironolactone 12.5 mg p.o. b.i.d.. Consults/Reason for consult Nephrology consultation Cardiology consulted for chest pain Operations or Procedures ORDERING PHYSICIAN: FAVIO RASMUSSEN MD PROCEDURE(s): ABPL - CT AB PEL WO CON-NO ORAL OR IV REASON: pain ORDER NUMBER(s): [id number], ACCESSION NUMBER(s): [id number] CLINICAL HISTORY: Abdominal pain TECHNIQUE: CT of the abdomen and pelvis was performed without intravenous contrast. This exam was performed according to our departmental dose optimization program. Up-to-date CT equipment and radiation dose reduction techniques are utilized as appropriate. CTDI: 27.88 DLP: 1602.49 WID: COMPARISON: CT CT AB PEL WO CON-NO ORAL OR IV on DOS: 09/09/23 FINDINGS: Lower Thorax: Linear scarring or atelectasis in the lingula. Normal-sized heart. Liver and Biliary system: Mild hepatomegaly with the right lobe of the liver measuring 19 cm craniocaudal. No definite hepatic lesion. There is mild dilatation of the common bile duct status post cholecystectomy. No intrahepatic bile duct dilatation. Spleen: Unremarkable. Adrenal Glands and Kidneys: Unremarkable. Pancreas and Retroperitoneum: Unremarkable. Aorta and Major Vessels: Aortoiliac vessels are normal in caliber with mild calcified atherosclerotic plaque. Bowel, Mesentery and Peritoneal space: The small and large bowel loops are normal in caliber. Prior Andree-en-Y gastric bypass surgery and left anterior abdominal anastomosis. Prior appendectomy. There is no free intraperitoneal air, mesenteric lymphadenopathy, or loculated fluid collection. Pelvis: Unremarkable. Abdominal wall and Osseous Structures: Multilevel lower thoracic and lumbar spondylosis. There is grade 1 anterolisthesis at L4-L5 and L5-S1. No destructive osseous lesion. IMPRESSION: 1. Prior Andree-en-Y gastric bypass surgery. No bowel obstruction, fluid collection, or free air. 2. Mild hepatomegaly. ATED BY: MAYCO SOLANO MD DICTATED DATE/TIME: 08/29/24 143 SIGNED BY: MAYCO SOLANO MD SIGNED DATE/TIME: 08/29/241437 CC: Condition at Discharge: Stable Final Diagnosis/Problems List Acute on chronic hypoxic respiratory failure, likely diastolic heart failure Acute complicated cystitis with right hydronephrosis Rhabdomyolysis secondary to possible hypothyroidism Acute chest pain, rule out ACS Likely diastolic heart failure Essential hypertension YONG, likely VMN Hypokalemia Transaminitis Hypothyroidism Dyslipidemia History of Andree-en-Y bypass Discharge Disposition: Home Discharge Instruct/Medications Diet: Cardiac 2g Na,low cholest Activity: Light activity Follow Up/Referral: Follow up with primary care physician within 7 days Follow up with [place] clinic appointment Follow up with armoring machine operator as outpatient within 2 weeks Medications: Resume home medications Discharge Statement: "Patient was advised to return to the ER or call 911 if any headaches, dizziness, shortness of breath, chest pain, abdominal pain, bleeding, fevers, or worsening of medical condition. Patient was counseled about treatment plan, medications, possible side effects, patientverbalized understanding. All questions were answered to the best of my ability. This discharge took greater then 30 minutes in planning, reviewing documentation, counseling the patient, and discussing with other team members." ASSESSMENT ASSESSMENT Assessment Acute hypoxic respiratory failure, likely diastolic heart failure Acute complicated cystitis with right hydronephrosis Rhabdomyolysis secondary to possible hypothyroidism Acute chest pain, rule out ACS Date of Service: Sep 03, 2024 Billing Provider: TIKA JEAN MD Common Visit Codes: [id number] DISCH DAY >30min MARY MANCIA RESIDENT Sep 03, 2024 15:42 TIKA JEAN MD Sep 03, 2024 22:18
--- NOTE | 2024-09-03 15:49 | DVHPN2 ---
Progress Note Date Seen: Sep 03, 2024 Medical Necessity Reason Pt with a Central, PICC or Fol: No Objective vital signs Vital Sign Date Time Temp Pulse Resp B/P (MAP) Pulse Ox O2 Delivery O2 Flow Rate FiO2 09/03/24 14:53 36.4 68 18 09/03/24 13:00 125/67 (86) 98 09/03/24 08:00 Nasal Cannula* 3 32 Total Intake and Output 09/02/24 09/02/24 09/03/24 15:00 23:00 07:00 Intake Total 50 ml 600 ml 775 ml Output Total 700 ml 900 ml Balance 50 ml -100 ml -125 ml medications Current Medications Medications Dose Ordered Sig/Latha Route Start Time Stop Time Status Last Admin Dose Admin Acetaminophen 650 mg Q6HP PRN PO 08/29/24 22:30 Acetaminophen/ Hydrocodone Bitart 1 tab Q4HP PRN PO 08/29/24 22:30 08/30/24 03:59 1 TAB Pregabalin 100 mg TID PO 08/30/24 06:00 09/03/24 14:36 100 MG Levothyroxine Sodium 50 mcg QAM@0600 PO 08/31/24 06:00 09/03/24 06:25 50 MCG Apixaban 5 mg BID PO 08/31/24 10:00 09/03/24 10:10 5 MG Ceftriaxone Sodium 50 ml @ 100 mls/hr DAILY@09 IV 09/01/24 09:00 09/03/24 10:09 100 MLS/HR Albuterol 2.5 mg Q4HR NEB 08/31/24 14:00 09/03/24 07:19 2.5 MG Ipratropium [place] 0.5 mg Q4HR NEB 08/31/24 14:00 09/03/24 07:19 0.5 MG Oxycodone/ Acetaminophen 2 tab TID PO 09/01/24 22:00 09/03/24 10:09 2 TAB Furosemide 20 mg BIDD IV 09/01/24 18:00 09/03/24 10:10 20 MG Spironolactone 12.5 mg BIDD PO 09/02/24 18:00 09/03/24 06:21 12.5 MG Examination: GENERAL:Normal, CVS:Abnormal, ABDOMEN:Normal laboratory and microbiology Laboratory Tests 09/03/24 06:21 09/02/24 05:18 Test 09/03/24 06:21 Range/Units Serum Glucose 101 74-106 mg/dL Microbiology Date/Time Source Procedure Growth Status 08/31/24 15:15 Voided Urine Urine Culture - Final Complete 08/31/24 10:00 Nose MRSA Screen - Final Complete Problem List/Assessment/Plan Problem List/Assessment/Plan 58-year-old female past medical history of pulmonary embolism, congestive heart failure and hypertension presents to the hospital complaining of shortness of breath patient was admitted for fluid overload. Acute kidney injury prerenal setting of fluid overload No previous history of CKD Pulmonary hypertension Diastolic heart failure , RV failure Pulmonary embolism with IVC filter po diuretics from IV replace potassium daily, K sparing diuretic ordered rec normalization of potassium avoid hypokalemia avoid hypotension Desire has resolved Plan discussed with: Patient Dietary Evaluation Review Comments: 1) Refer Sanitary Chemist on DCfor weight management 2) Continue current POC Expected Outcomes/Goals: To meet >75% estimated needs Fu 3-5 days RIVAS JOHNSON MD Sep 03, 2024 15:49
--- NOTE | 2024-09-03 17:18 | DVHSR ---
APPROVED REPORT Exam: Nuclear Stress Test Indication: Chest Pain Stress Tech: Roberta Lee Ht: 5 ft 3 in Wt: 344 lbs BSA: 2.43 m2 HR: 84 bpm BP: 118/76 mmHg BMI: 60.93 Rhythm: NSR Medical History Medical History: HTN, DLD, PULM HTN, PE, ETOH, SMOKER, MORBID OBESITY Allergies: VERAPAMIL, TRAMADOL, MORPHINE, LIDOCAINE, KETORALAC Stress Test Details Stress Test: Pharmacologic stress testing performed using 0.4 mg of regadenoson per 5 mL given IV ov er 10 seconds. Reason for pharmacologic stress test: CHEST PAIN. HR Resting HR: 84 bpmMax Heart Rate (APMHR): 164.531029 bpm Max HR Achieved: 117 bpmTarget HR (85% APMHR): 139.917813 bpm % of APMHR: 71.34 Recovery HR: 90 bpm BP Resting BP: 118/76 mmHg Recovery BP: 155/81 mmHg ECG Resting ECG: NSR Clinical Reason for Termination: Completed protocol Nurse Comments Uneventful stress test performed per protocol. Patient tolerated well and was taken back to [facility] via wheel chair in stable condition by tech. Stress ECG Conclusion lvef 54% anterior wall ischemia lateral wall ischemia noted abnormal study NM EXAM: Myocardial Perfusion REST/STRESS Imaging Protocol: Rest Tc-99m/Stress Tc-99m 2 days Resting Data Rest SPECT myocardial perfusion imaging was performed in supine position 60 minutes following the int ravenous injection of 22.0 mCi of Tc-99m Sestamibi. Time of rest injection: 13:00 Date: 09/01/2024 Time of rest imagin:00 Date: 09/01/2024 Administration Route: IV Administration Site: Right Arm Pharmacologic Stress Pharmacologic stress test was performed by injecting Regadenoson 0.4 mg IV push followed by the intra venous injection of 27.6 mCi of Tc-99m Sestamibi. Time of stress injection: 09:15 Date: 09/02/2024 Time of stress imagin:15 Date: 09/02/2024 Administration Route: IV Administration Site: Right Arm Gated Stress SPECT was performed 60 minutes after stress injection. The images were gated to evaluate regional wall motion and calculate left ventricular ejection fracti on. Stress only was performed in the Supine position. Comments Two-Day study Nuclear Conclusion Nuclear Findings: positive for ischemia lvef 54% anterior wall ischemia lateral wall ischemia noted abnormal study
== END 2024-09-03 16:05 | disposition home or self-care (01) | DRG 463 ==
LOC: EDBD 12:01 → EDUNIT# 12:01 → ER 12:09 → OVERFLOW 22:28 → WEST WING 08-30 14:22 → TELE-WESTW 08-31 13:49
PROVIDERS: ADMIT Internal Medicine Geriatric Medicine; ATTEND Internal Medicine Geriatric Medicine
DX: N13.6 Pyonephrosis (principal); J96.21 Acute and chronic respiratory failure with hypoxia; N17.0 Acute kidney failure with tubular necrosis; I27.20 Pulmonary hypertension, unspecified; M62.82 Rhabdomyolysis; Z68.43 Body mass index [BMI] 50.0-59.9, adult; I11.0 Hypertensive heart disease with heart failure; E86.0 Dehydration; E78.5 Hyperlipidemia, unspecified; E03.9 Hypothyroidism, unspecified; Z20.822 Contact with and (suspected) exposure to COVID-19; E87.6 Hypokalemia; I50.32 Chronic diastolic (congestive) heart failure; E66.01 Morbid (severe) obesity due to excess calories; Z90.49 Acquired absence of other specified parts of digestive tract; E11.9 Type 2 diabetes mellitus without complications; R74.01 Elevation of levels of liver transaminase levels; J44.9 Chronic obstructive pulmonary disease, unspecified; Z99.81 Dependence on supplemental oxygen; Z98.84 Bariatric surgery status; Z87.891 Personal history of nicotine dependence; Z86.711 Personal history of pulmonary embolism; Z83.3 Family history of diabetes mellitus; Z82.49 Family history of ischemic heart disease and other diseases of the circulatory system; Z82.3 Family history of stroke; Z79.01 Long term (current) use of anticoagulants; Z88.4 Allergy status to anesthetic agent; Z88.5 Allergy status to narcotic agent; Z88.8 Allergy status to other drugs, medicaments and biological substances; E87.70 Fluid overload, unspecified
CPT/HCPCS: 36415; 71045; 71250; 74176; 76705; 76775; 78452; 80048; 80053; 80061; 80307; 81001; 82306; 82550; 82570; 82607; 82746; 83036; 83540; 83735; 83880; 84100; 84156; 84300; 84439; 84443; 84484; 84550; 84702; 85025; 85379; 85652; 86141; 87081; 87086; 87426; 87804; 93005; 93017; 93306; 94640; 94660; 96374; 96375; 97110; 97116; 97163; 97530; 99291; G0378; J2405; J3480